=== PATIENT | female | born 1995 | race Caucasian/White ===

== ENCOUNTER 2017-06-08 20:20 | Inpatient (IN) | payer OTHER ==
[2017-06-08 21:25] LABS: ABSOLUTE EOSINOPHILS # (AUTO) 0.3 10^3/uL (0.0-0.6); ABSOLUTE LYMPHOCYTES (AUTO) 2.7 10^3/uL (0.5-4.7); ABSOLUTE MONOCYTES (AUTO) 1.3 10^3/uL (0.1-1.4); ABSOLUTE NEUT (AUTO) 8.6 10^3/uL (1.7-8.2); BASOPHILS % (AUTO) 0.4 % (0-2); EOSINOPHILS % (AUTO) 2.2 % (0-6); HEMATOCRIT 38.7 % (36.0-47.0); HEMOGLOBIN 12.5 g/dL (12.0-15.5); HGB HCT DIFFERENCE -1.2; LYMPHOCYTES % (AUTO) 20.5 % (13-45); MEAN CORPUSCULAR HEMOGLOBIN 28.9 pg (27.0-33.4); MEAN CORPUSCULAR HGB CONC 32.2 g/dL (32.0-36.0); MEAN CORPUSCULAR VOLUME 90 fl (80-97); MONOCYTES % (AUTO) 10.1 % (3-13); RED BLOOD COUNT 4.31 10^6/uL (3.72-5.28); RED CELL DISTRIBUTION WIDTH 14.6 % (11.5-14.0); SEGMENTED NEUTROPHILS % (AUTO) 66.8 % (42-78); WHITE BLOOD COUNT 12.9 10^3/uL (4.0-10.5)
[2017-06-08 21:26] LABS: APPEARANCE,URINE CLEAR; BILIRUBIN,URINE NEGATIVE (NEGATIVE); GLUCOSE, URINE NEGATIVE (NEGATIVE); KETONES,URINE TRACE mg/dL (NEGATIVE); LEUKOCYTE ESTERASE,URINE NEGATIVE (NEGATIVE); NITRITE,URINE NEGATIVE (NEGATIVE); PROTEIN,URINE NEGATIVE (NEGATIVE); URINE SPECIFIC GRAVITY 1.006; UROBILINOGEN,URINE NEGATIVE mg/dL (<2.0)
[2017-06-08 21:37] LABS: ALANINE AMINOTRANSFERASE 28 U/L (9-52); ALBUMIN 4.6 g/dL (3.5-5.0); ALKALINE PHOSPHATASE 94 U/L (38-126); ANION GAP 16 (5-19); ASPARTATE AMINO TRANSFERASE 31 U/L (14-36); BILIRUBIN,DIRECT 0.4 mg/dL (0.0-0.4); BILIRUBIN,TOTAL 0.7 mg/dL (0.2-1.3); BLOOD UREA NITROGEN 30 mg/dL (7-20); CALCIUM 9.9 mg/dL (8.4-10.2); CARBON DIOXIDE 23 mmol/L (22-30); CHLORIDE 101 mmol/L (98-107); CREATININE RESULT 3.92 mg/dL (0.52-1.25); GLUCOSE 86 mg/dL (75-110); LIPASE 155.5 U/L (23-300); POTASSIUM 4.9 mmol/L (3.6-5.0); SODIUM 140.3 mmol/L (137-145); TOTAL PROTEIN 7.9 g/dL (6.3-8.2)
[2017-06-08] MEDS ORDERED: KETOROLAC TROMETHAMINE INJ/PF 30 MG/1 ML SDV IV ONE (21:53)
[2017-06-08] MEDS ORDERED: ONDANSETRON HCL INJ/PF 4 MG/2 ML SDV IV ONE (21:53)
[2017-06-08] MEDS ORDERED: NORMAL SALINE 1000 ML 1,000 ML IV ONE ×3 (22:22→23:21)
--- NOTE | 2017-06-08 22:56 | ER Document Report ---
ED GI/ - General Chief Complaint: Abdominal Pain Stated Complaint: STOMACH/BACK PAIN Time Seen by Provider: 06/08/17 22:11 Mode of Arrival: Ambulatory Information source: Patient Notes: Patient presents complaining of nausea and abdominal cramps that started yesterday. Patient denies any vomiting or diarrhea. Patient denies any fever. Patient states that she was recently placed on Cipro to treat a dental infection although stopped it yesterday when her symptoms started. Patient states that she had been taking Cipro 750 mg twice a day for 4 days. Patient states she was given pain medication in triage and now her pain has resolved. TRAVEL OUTSIDE OF THE [place] IN LAST 30 DAYS: No - HPI Patient complains to provider of: Abdominal pain. No: Diarrhea, Dysuria, Vaginal bleeding, Vaginal discharge, Vomiting Onset: Yesterday Timing/Duration: Gradual Quality of pain: Achy Severity at maximum: Moderate Pain Level: Denies Location: Low back, Other - Generalized abdomen Vaginal bleeding (Compared to normal period): None Associated symptoms: Nausea. denies: Diarrhea, Dysuria, Fever, Loss of appetite , Urinary hesitancy, Urinary frequency, Urinary retention, Urinary urgency, Vaginal discharge Exacerbated by: Denies Relieved by: Denies Similar symptoms previously: No Recently seen / treated by doctor: No - Related Data Allergies/Adverse Reactions: amoxicillin Allergy (Verified 06/08/17 20:55) clindamycin Allergy (Verified 06/08/17 20:55) Penicillins Allergy (Verified 06/08/17 20:55) Past Medical History - General Information source: Patient - Social History Smoking Status: Former Smoker Chew tobacco use (# tins/day): No Frequency of alcohol use: Social Drug Abuse: None 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 denies: Fever, Recent illness EENT: No symptoms reported Cardiovascular: No symptoms reported. denies: Chest pain Respiratory: No symptoms reported. denies: Cough, Short of breath Gastrointestinal: Abdominal pain, Nausea. denies: Diarrhea, Vomiting Genitourinary: Flank pain. denies: Dysuria Female Genitourinary: No symptoms reported Musculoskeletal: Back pain Skin: No symptoms reported Hematologic/Lymphatic: No symptoms reported Neurological/Psychological: No symptoms reported Physical Exam - Vital signs Vitals: Temp Pulse Resp BP Pulse Ox 98.7 F 75 16 129/82 H 100 06/08/17 20:56 06/08/17 20:56 06/08/17 20:56 06/08/17 20:56 06/08/17 20:56 - General General appearance: Appears well, Alert In distress: None - HEENT Head: Normocephalic, Atraumatic Eyes: Normal Conjunctiva: Normal Nasal: Normal Mouth/Lips: Normal Mucous membranes: Normal Neck: Normal, Supple. No: Lymphadenopathy - Respiratory Respiratory status: No respiratory distress Chest status: Nontender Breath sounds: Normal. No: Rales, Rhonchi, Stridor, Wheezing Chest palpation: Normal - Cardiovascular Rhythm: Regular Heart sounds: S1 appreciated, S2 appreciated Murmur: No - Abdominal Inspection: Obese Distension: No distension Bowel sounds: Normal Tenderness: Nontender Organomegaly: No organomegaly - Back Back: Normal, Nontender. No: CVA tenderness - Extremities General upper extremity: Normal inspection, Normal ROM General lower extremity: Normal inspection, Normal ROM - Neurological Neuro grossly intact: Yes Cognition: Normal Frank Coma Scale Eye Opening: Spontaneous [place] Coma Scale Verbal: Oriented Frank Coma Scale Motor: Obeys Commands Frank Coma Scale Total: 15 - Psychological Associated symptoms: Normal affect, Normal mood - Skin Skin Temperature: Warm Skin Moisture: Dry Skin Color: Normal Course - Re-evaluation Re-evalutation: 06/08/17 23:[address] Wakefield regarding patient presentation and diagnostic test results. Recommends giving patient 3 L of IV fluids and then repeating her chemistry panel. 06/09/17 00:07 IVF infusing, BS CTA, pt denies complaints at this time. 06/09/17 00:53 Patient states that her abdominal pain and back pain have returned but are off and on at this time. Patient requesting additional medicine. 06/09/17 02:00\ call placed to dr Puentes, he will return call when available 06/09/17 04:[address] Puentes, he will return call when available 06/09/17 05:[address] Puentes regarding patient presentation, agrees to accept patient for admission to [facility] - Vital Signs Vital signs: Temp Pulse Resp BP Pulse Ox 98.0 F 73 16 134/73 H 98 06/09/17 00:44 06/09/17 03:35 06/09/17 03:35 06/09/17 03:35 06/09/17 03:35 - Laboratory Result Diagrams: 06/08/17 20:35 06/09/17 01:20 Laboratory results interpreted by me: 06/08/17 06/08/17 06/08/17 20:35 20:35 20:35 WBC 12.9 H RDW 14.6 H Absolute Neutrophils 8.6 H Chloride BUN 30 H Creatinine 3.92 H Est GFR ( Amer) 18 L Est GFR (Non-Af Amer) 14 L Urine Ketones TRACE H Urine Blood SMALL H 06/09/17 01:20 WBC RDW Absolute Neutrophils Chloride 108 H BUN 26 H Creatinine 3.34 H Est GFR ( Amer) 21 L Est GFR (Non-Af Amer) 17 L Urine Ketones Urine Blood - Diagnostic Test Radiology reviewed: Reports reviewed Discharge - Discharge Clinical Impression: EMILY (acute kidney injury) Condition: Stable Disposition: ADMITTED INPATIENT Admitting Provider: Hospitalist Unit Admitted: [facility]
--- NOTE | 2017-06-08 23:02 | RADIOLOGY REPORT (SQ) ---
EXAM DESCRIPTION: CT LTD RENAL STONE PROTOCOL ON COMPLETED DATE/TIME: 06/08/2017 10:34 pm REASON FOR STUDY: bilat flank pain, EMILY COMPARISON: None. TECHNIQUE: CT scan of the abdomen and pelvis performed without intravenous or oral contrast. Images reviewed with lung, soft tissue, and bone windows. Reconstructed coronal and sagittal MPR images revi ewed. All images stored on PACS. All CT scanners at this facility use dose modulation, iterative reconstruction, and/or weight based d osing when appropriate to reduce radiation dose to as low as reasonably achievable (ALARA). [facility]: Dose Right [facility]: CareDose [facility]: Dose Right [facility]: Teradose 4D [facility]: Smart Skypaz RADIATION DOSE: Up-to-date CT equipment and radiation dose reduction techniques were employed. CTDIv ol: 13.8 mGy. DLP: 700 mGy-cm.mGy. LIMITATIONS: None. FINDINGS: LOWER CHEST: No significant findings. No nodules or infiltrates. NON-CONTRASTED LIVER, SPLEEN, ADRENALS: Evaluation limited by lack of IV contrast. No identified sign ificant masses. PANCREAS: No masses. No peripancreatic inflammatory changes. GALLBLADDER: No identified stones by CT criteria. No inflammatory changes to suggest cholecystitis. RIGHT KIDNEY AND URETER: No suspicious masses. Assessment limited by lack of IV contrast. No signif icant calcifications. No hydronephrosis or hydroureter. LEFT KIDNEY AND URETER: No suspicious masses. Assessment limited by lack of IV contrast. No signifi cant calcifications. No hydronephrosis or hydroureter. AORTA AND RETROPERITONEUM: No aneurysm. No retroperitoneal masses or adenopathy. BOWEL AND PERITONEAL CAVITY: No obvious masses or inflammatory changes. No free fluid. APPENDIX: Normal. PELVIS, BLADDER, AND ABDOMINAL WALL:Age-appropriate appearance of the uterus and ovaries. Trace cul- de-sac free fluid. Bladder normal. BONES: No significant findings. OTHER: No other significant finding. IMPRESSION: NO SIGNIFICANT OR ACUTE PROCESS IN THE ABDOMEN OR PELVIS. COMMENT: Quality ID # [id number]: Final reports with documentation of one or more dose reduction techniques (e.g., Automated exposure control, adjustment of the mA and/or kV according to patient size, use of iterative reconstruction technique) TECHNICAL DOCUMENTATION: JOB ID: [id number] [employer]- All Rights Reserved
[2017-06-09] MEDS ORDERED: MORPHINE SULFATE 10 MG/ML INJ IV ONE ×2 (00:52→04:23)
[2017-06-09 01:48] LABS: ANION GAP 11 (5-19); BLOOD UREA NITROGEN 26 mg/dL (7-20); CALCIUM 9.3 mg/dL (8.4-10.2); CARBON DIOXIDE 24 mmol/L (22-30); CHLORIDE 108 mmol/L (98-107); CREATININE RESULT 3.34 mg/dL (0.52-1.25); GLUCOSE 96 mg/dL (75-110); POTASSIUM 4.1 mmol/L (3.6-5.0); SODIUM 143.1 mmol/L (137-145)
[2017-06-09] MEDS ORDERED: NORMAL SALINE 1000 ML 1,000 ML IV PRN (03:00)
[2017-06-09] MEDS ORDERED: IPRATROPIUM/ALBUTEROL 0.5-2.5 MG/3 ML AMPUL NEB PRN (07:03)
[2017-06-09] MEDS ORDERED: 1/2 NORMAL SALINE 1,000 ML IV PRN (07:03)
--- NOTE | 2017-06-09 07:34 | PDOC H&P ---
History of Present Illness Admission Date/PCP: 06/09/17 05:49 PCP None Patient complains of: nausea, abd cramps History of Present Illness: MATHEW COURTNEY is a 21 year old female with underlying eczema, reflux , right knee pain, history of peptic ulcer disease, mild anxiety depression, without suicidal or homicidal ideation, but no known urinary tract problems who presents to the emergency room for evaluation of approximately 24 hour history of nausea and primarily upper abdominal cramping. Nothing in particular made the pain worse. Given pain medication in triage, with resolution of the pain. No vomiting, fever chills, or diarrhea. Started on Cipro to treat a dental infection. Stop this medication yesterday when her symptoms started. Took this twice a day. No darkening of her urine. No dysuria. No prior urinary tract infections. Patient has been discussed with emergency room nurse practitioner who evaluated the patient. Dictation via voice recognition software. Laboratory results are listed in [employer] and are reviewed. X-ray summary results are listed below, with full report(s) reviewed. . Social history/personal habits: Single. No children. 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 No tobacco or illicit drug use. 4-5 beers per weekend when out with friends. Allergies/adverse reactions are listed in [employer] and are reviewed. Home medications none REVIEW OF SYSTEMS: Constitutional: No fever or chills. Eyes: No vision complaints. ENT: No swallowing problems or complaints. Denies hearing loss. Pulmonary: No current complaints. Cardiovascular: No current complaints, including chest pain. Gastrointestinal: See history and present illness. Skin: No current complaints, including rashes. Hematologic: Easy bruising. Neurologic: No current complaints, including numbness or tingling. Musculoskeletal: Intermittent right knee pain, without diagnosis of arthritis. Psychiatric: Mild anxiety and depression. Denies suicidal or homicidal ideation. Endocrine: No current complaints, including polyuria. Genitourinary: No current complaints, including dysuria. PHYSICAL EXAMINATION: 5 feet 1 inches tall. 88 kg. BMI 36.7 kg/m. Temperature 98.0. Pulse 74 and regular. Blood pressure 132/94. Respirations are 15 and unlabored. 100% saturation on room air. Obese otherwise well-developed young female who appears approximately her stated age. Pleasant awake alert and cooperative. No obvious distress other than somewhat anxious. Mother is listening in on cell phone; patient aware. Female emergency room nurse Nicole is present. Skin is warm and dry. No grossly obvious evidence of rash in areas of skin examined. No subcutaneous nodules palpated. ENT: Hearing grossly normal to normal conversation. Tongue midline on protrusion pink and moist. Eyes: No scleral icterus. Pupils equal and reactive to light at 4 mm. [place] conjunctivae. Neck is supple and nontender to gentle active range of motion and palpation. Midline trachea. No palpable thyroid nodule mass enlargement or tenderness. Lymphatic: No palpable cervical or clavicular nodes. Neck and lymphatic exams limited by patient body habitus. Psychiatric: Reasonable insight into acute and chronic medical issues. Oriented to time location and why here. Lungs: Auscultation reveals clear and equal breath sounds bilaterally. No use of accessory respiratory muscles. Cardiovascular: Heart regular rate and rhythm, without gallop murmur or rub. No carotid or abdominal aortic bruits. No ankle or pedal edema. Faintly palpable dorsalis pedis pulses. Abdomen:soft obese basically nontender other than scant upper abdominal discomfort to palpation, with positive bowel sounds. Unable to adequately evaluate abdomen for masses or organomegaly due to body habitus. Extremities: Feet are warm and dry. No calf tenderness to compression. No grossly obvious visual evidence of calf swelling. Gentle manipulation of lower extremities fails to reveal any obvious evidence of injury or instability to knees hips or ankles. Neurologic: Moves upper extremities grossly normally. Patellar reflexes absent. Absent Babinski. Light touch is intact at feet. Dorsiflexion and plantarflexion of feet 5 / 5 and symmetric. Past Medical History Cardiac Medical History: Denies: Atrial Fibrillation, Congestive Heart Failure, Coronary Artery Disease, DVT, Myocardial Infarction, Hyperlipidema, Hypertension, Pulmonary Embolism Pulmonary Medical History: Reports: Asthma - Has not bothered her for years Denies: Chronic Obstructive Pulmonary Disease (COPD), Sleep Apnea EENT Medical History: Denies: Eyes, Ears, Throat Neurological Medical History: Reports: Migraine - Occasional Denies: Hemorrhagic CVA, Ischemic CVA, Seizures Endocrine Medical History: Denies: Diabetes Mellitus Type 1, Diabetes Mellitus Type 2, Hyperthyroidism, Hypothyroidism Renal/ Medical History: Reports: None GI Medical History: Reports: Gastroesophageal Reflux Disease Denies: Cirrhosis, Hepatitis, Peptic Ulcer Disease Musculoskeltal Medical History: Reports: Other - Intermittent right knee pain Skin Medical History: Reports: Eczema Psychiatric Medical History: Reports: Depression, General Anxiety Disorder Denies: Alcohol Dependency, Substance Abuse, Tobacco Dependency Hematology: Reports: Other - Easy bruising Infectious Medical History: Denies: Hepatitis B, Hepatitis C Past Surgical History Past Surgical History: Reports: Tonsillectomy, Other - Nasal surgery Social History Information Source: Patient, Relative - Mother listening in on cell phone, Emergency Med Personnel, [facility] Records Smoking Status: Unknown if Ever Smoked Frequency of Alcohol Use: Social Drugs: None - Advance Directive Resuscitation Status: Full Code Surrogate healthcare decision maker:: Mother Family History Family History: Reviewed & Not Pertinent Parental Family History Reviewed: Yes - Mother healthy; uncertain health status of father Children Family History Reviewed: NA Sibling(s) Family History Reviewed.: Yes - Healthy Medication/Allergy Allergies/Adverse Reactions: amoxicillin Allergy (Verified 06/08/17 20:55) clindamycin Allergy (Verified 06/08/17 20:55) Penicillins Allergy (Verified 06/08/17 20:55) shellfish derived Allergy (Verified 06/09/17 07:11) Physical Exam Vital Signs: Temp Pulse Resp BP Pulse Ox 98.0 F 73 18 123/72 97 06/09/17 00:44 06/09/17 03:35 06/09/17 07:01 06/09/17 07:01 06/09/17 07:01 Results Impressions: Limited or Localized CT 06/08/17 22:22 IMPRESSION: NO SIGNIFICANT OR ACUTE PROCESS IN THE ABDOMEN OR PELVIS. Assessment & Plan - Diagnosis (1) ARF (acute renal failure) Qualifiers: Acute renal failure type: unspecified Qualified Code(s): N17.9 - Acute kidney failure, unspecified Is this a current diagnosis for this admission?: Yes Plan: Likely an adverse effect of Cipro. Continue IV fluid. Serial chemistry. Nephrology consult. I have strongly encouraged patient to be careful getting out of bed, to avoid a fall with injury. Knee high SCDs for DVT prophylaxis, along with subcutaneous heparin. Impression and plans were discussed with patient and mother, both of whom concur. Time spent in evaluation and management of patient: 67 minutes. (2) Abdominal pain Qualifiers: Abdominal location: upper abdomen, unspecified Qualified Code(s): R10.10 - Upper abdominal pain, unspecified Is this a current diagnosis for this admission?: Yes Plan: As needed pain medication (3) DVT prophylaxis Is this a current diagnosis for this admission?: Yes (4) Nausea Is this a current diagnosis for this admission?: Yes Plan: As needed Phenergan - Time Time Spent: 50 to 70 Minutes Medications reviewed and adjusted accordingly: Yes Anticipated discharge: Home Within: within 72 hours - Inpatient Certification Based on my medical assessment, after consideration of the patient's comorbidities, presenting symptoms, or acuity I expect that the services needed warrant INPATIENT care.: Yes I certify that my determination is in accordance with my understanding of Medicare's requirements for reasonable and necessary INPATIENT services [42 CFR 412.3e].: Yes Medical Necessity: Need Close Monitoring Due to Risk of Patient Decompensation, Need For IV Fluids, Risk of Complication if Not Cared For in Hospital, Risk of Diagnosis Which Will Require Inpatient Eval/Care/Monitoring Post Hospital Care: D/C or Transfer Summary
[2017-06-09 07:51] LABS: ABSOLUTE BASOPHILS # (AUTO) 0.1 10^3/uL (0.0-0.2); ABSOLUTE EOSINOPHILS # (AUTO) 0.3 10^3/uL (0.0-0.6); ABSOLUTE LYMPHOCYTES (AUTO) 3.1 10^3/uL (0.5-4.7); ABSOLUTE MONOCYTES (AUTO) 1.2 10^3/uL (0.1-1.4); ABSOLUTE NEUT (AUTO) 5.9 10^3/uL (1.7-8.2); BASOPHILS % (AUTO) 0.5 % (0-2); EOSINOPHILS % (AUTO) 2.6 % (0-6); HEMATOCRIT 35.3 % (36.0-47.0); HEMOGLOBIN 11.6 g/dL (12.0-15.5); HGB HCT DIFFERENCE -0.5; LYMPHOCYTES % (AUTO) 29.2 % (13-45); MEAN CORPUSCULAR HEMOGLOBIN 29.4 pg (27.0-33.4); MEAN CORPUSCULAR HGB CONC 32.7 g/dL (32.0-36.0); MEAN CORPUSCULAR VOLUME 90 fl (80-97); MONOCYTES % (AUTO) 11.1 % (3-13); RED BLOOD COUNT 3.94 10^6/uL (3.72-5.28); RED CELL DISTRIBUTION WIDTH 14.1 % (11.5-14.0); SEGMENTED NEUTROPHILS % (AUTO) 56.6 % (42-78); WHITE BLOOD COUNT 10.5 10^3/uL (4.0-10.5)
[2017-06-09 08:00] LABS: ANION GAP 9 (5-19); BLOOD UREA NITROGEN 25 mg/dL (7-20); CALCIUM 9.1 mg/dL (8.4-10.2); CARBON DIOXIDE 24 mmol/L (22-30); CHLORIDE 108 mmol/L (98-107); CREATININE RESULT 3.18 mg/dL (0.52-1.25); GLUCOSE 85 mg/dL (75-110); MAGNESIUM 2.1 mg/dL (1.6-2.3); PHOSPHORUS 5.6 mg/dL (2.5-4.5); POTASSIUM 4.4 mmol/L (3.6-5.0); SODIUM 140.5 mmol/L (137-145)
[2017-06-09] MEDS: DOCUSATE SODIUM 100 MG CAPSULE PO SCH ×2 (10:45→17:43)
[2017-06-09] MEDS: HEPARIN SOD (PORCINE) 5,000 UNIT/ML 1 ML SYRINGE SUBCUT SCH ×2 (10:46→22:18)
--- NOTE | 2017-06-09 14:50 | PDOC CONSULTATION ---
Consultation Consult Date: 06/09/17 Consult reason:: EMILY History of Present Illness Admission Date/PCP: 06/09/17 07:03 History of Present Illness: MATHEW COURTNEY is a 21 year old female with underlying eczema, reflux , right knee pain, history of peptic ulcer disease, mild anxiety depression, without suicidal or homicidal ideation, but no known urinary tract problems who presents to the emergency room for evaluation of approximately 24 hour history of nausea and primarily upper abdominal cramping. Pain was found to be mostly in her lower abdomen. She also had it radiating to her lower back. Prior to this event she was started on the antibiotic cipro for prophylaxis of a dental procedure. When she came to the ER she was found to have a creatinine of 3.9. She was given NS at a rate of 175mL an hour. She also had an abdominal CT with stone protocol done, which showed no stones or abnormalities. This morning her creatinine is down to 3.2. She denies any change in the way the urine looks, she did have a minor decrease in production. The urine production since then has resumed back to normal. No history of kidney related disease like lupus, FSGS, nephritis or nephrotic syndrome. No family history of PKD. Past Medical History Cardiac Medical History: Denies: Atrial Fibrillation, Coronary Artery Disease, DVT, Hyperlipidemia, Myocardial Infarction, Pulmonary Embolism Pulmonary Medical History: Reports: Asthma - Has not bothered her for years Denies: Chronic Obstructive Pulmonary Disease (COPD), Sleep Apnea EENT Medical History: Reports: Other - Easy bruising Denies: Eyes, Ears, Throat Neurological Medical History: Reports: Migraine - Occasional Denies: Hemorrhagic CVA, Ischemic CVA, Seizures Endocrine Medical History: Denies: Diabetes Mellitus Type 1, Diabetes Mellitus Type 2, Hyperthyroidism, Hypothyroidism Renal/ Medical History: Reports: None GI Medical History: Reports: Gastroesophageal Reflux Disease Denies: Cirrhosis, Hepatitis, Peptic Ulcer Disease Musculoskeltal Medical History: Reports: Other - Intermittent right knee pain Skin Medical History: Reports: Eczema Psychiatric Medical History: Reports: Depression, General Anxiety Disorder Denies: Alcohol Dependency, Substance Abuse, Tobacco Dependency Infectious Medical History: Denies: Hepatitis B, Hepatitis C Past Surgical History Past Surgical History: Reports: Tonsillectomy, Other - Nasal surgery Social History Smoking Status: Never Smoker Frequency of Alcohol Use: Social Hx Recreational Drug Use: No Drugs: None Hx Prescription Drug Abuse: No - Advance Directive Resuscitation Status: Full Code Family History Parental Family History Reviewed: No Children Family History Reviewed: No Sibling(s) Family History Reviewed.: No Medication/Allergy Home Medications: No Home Medications 06/09/17 Allergies/Adverse Reactions: Iodinated Contrast- Oral and IV Dye Allergy (Severe, Verified 06/09/17 09:43) Anaphylaxis peanut Allergy (Severe, Verified 06/09/17 09:43) Anaphylaxis Penicillins Allergy (Severe, Verified 06/09/17 09:43) Anaphylaxis shellfish derived Allergy (Severe, Verified 06/09/17 09:43) Anaphylaxis strawberry Allergy (Severe, Verified 06/09/17 09:43) Anaphylaxis amoxicillin Allergy (Intermediate, Verified 06/09/17 09:43) Vomiting cefaclor [From Ceclor] Allergy (Verified 06/09/17 07:26) clindamycin Allergy (Verified 06/09/17 09:43) erythromycin base Allergy (Verified 06/09/17 07:26) ketchup Allergy (Severe, Uncoded 06/09/17 09:43) Anaphylaxis Review of Systems Eyes: ABSENT: visual disturbances Ears: ABSENT: hearing changes Nose, Mouth, and Throat: ABSENT: headache(s), sore throat Cardiovascular: ABSENT: chest pain, dyspnea on exertion, edema, orthropnea, palpitations Respiratory: ABSENT: cough, dyspnea, sputum Gastrointestinal: ABSENT: abdominal pain, constipation, diarrhea, hematemesis, hematochezia, nausea, vomiting Genitourinary: ABSENT: difficulty urinating, dysuria, hematuria Musculoskeletal: ABSENT: deformity, joint swelling, muscle weakness Integumentary: ABSENT: rash, wounds Neurological: ABSENT: abnormal gait, abnormal speech, confusion, dizziness, focal weakness, syncope Psychiatric: PRESENT: anxiety, depression Endocrine: ABSENT: polydipsia, polyuria Physical Exam Vital Signs: Temp Pulse Resp BP Pulse Ox 98.8 F 64 14 131/70 H 100 06/09/17 09:17 06/09/17 11:26 06/09/17 11:26 06/09/17 09:06/09/17 11:26 Intake & Output 06/08/17 06/09/17 06/10/17 06:59 06:59 06:59 Weight 92.164 kg General appearance: PRESENT: no acute distress, well-developed, well-nourished Head exam: PRESENT: atraumatic, normocephalic Mouth exam: PRESENT: moist, tongue midline Neck exam: PRESENT: full ROM. ABSENT: JVD Respiratory exam: PRESENT: clear to auscultation alberto. ABSENT: accessory muscle use, chest wall tenderness Cardiovascular exam: PRESENT: RRR, +S1, +S2 GI/Abdominal exam: PRESENT: normal bowel sounds, soft. ABSENT: distended, guarding, organomegaly, rebound, tenderness Extremities exam: ABSENT: joint swelling, pedal edema, tenderness Musculoskeletal exam: PRESENT: normal inspection. ABSENT: deformity, tenderness Neurological exam: PRESENT: alert, awake, oriented to person, oriented to place , oriented to time, oriented to situation Psychiatric exam: PRESENT: appropriate affect, normal mood Skin exam: PRESENT: dry, intact, warm. ABSENT: cyanosis, rash Results Laboratory Results: 06/09/17 07:25 06/09/17 07:25 06/09/17 06/09/17 07:25 07:25 WBC 10.5 RBC 3.94 Hgb 11.6 L Hct 35.3 L MCV 90 MCH 29.4 MCHC 32.7 RDW 14.1 H Plt Count 235 Seg Neutrophils % 56.6 Lymphocytes % 29.2 Monocytes % 11.1 Eosinophils % 2.6 Basophils % 0.5 Absolute Neutrophils 5.9 Absolute Lymphocytes 3.1 Absolute Monocytes 1.2 Absolute Eosinophils 0.3 Absolute Basophils 0.1 Sodium 140.5 Potassium 4.4 Chloride 108 H Carbon Dioxide 24 Anion Gap 9 BUN 25 H Creatinine 3.18 H Est GFR ( Amer) 22 L Est GFR (Non-Af Amer) 18 L Glucose 85 Calcium 9.1 Phosphorus 5.6 H Magnesium 2.1 Impressions: Limited or Localized CT 06/08/17 22:22 IMPRESSION: NO SIGNIFICANT OR ACUTE PROCESS IN THE ABDOMEN OR PELVIS. Assessment & Plan - Diagnosis (1) Anemia Plan: Will follow up with anemia lab work up if it is going down. Most likely dilutional with how much NS that she is receiving (2) ARF (acute renal failure) Qualifiers: Acute renal failure type: unspecified Qualified Code(s): N17.9 - Acute kidney failure, unspecified Is this a current diagnosis for this admission?: Yes Plan: Looks to be improving. Most likely from the use of cipro. Most likely not due to a kidney stone. No stone was found on CT. Also does not look to be post obstructive. Unlikely to be from dehydration due to how hydrated she stays. UA shows no protein so less likely from nephritis or nephrotic syndrome. Continue on NS at current rate. Patient is producing good urine out put. (3) Abdominal pain Qualifiers: Abdominal location: upper abdomen, unspecified Qualified Code(s): R10.10 - Upper abdominal pain, unspecified Is this a current diagnosis for this admission?: Yes Plan: Controlled by pain meds. (4) Nausea Is this a current diagnosis for this admission?: Yes Plan: Resolved
[2017-06-09] MEDS: ACETAMINOPHEN 325 MG TABLET PO PRN (14:59)
[2017-06-09] MEDS: PROMETHAZINE HCL 25 MG TABLET PO PRN (15:01)
--- NOTE | 2017-06-09 15:09 | PDOC PROGRESS REPORT ---
Subjective Progress Note for:: 06/09/17 Subjective:: The patient is resting in her bed with her sister at the bedside. She states that she is feeling a little bit better and was able to eat some lunch this afternoon. She has been seen by nephrology who wants to continue increased IV fluids and is recommended a renal ultrasound. Overall she states that her nausea has improved. No vomiting. She does not feel as weak and dizzy as she did when she came into the hospital. The pain that she was having is improving. No chest pain, shortness of breath or heart palpitations. She has not had a bowel movement today. She is making good urine and has no dysuria, frequency or hematuria. Physical Exam Vital Signs: Temp Pulse Resp BP Pulse Ox 97.7 F 71 12 128/68 H 100 06/09/17 11:48 06/09/17 14:00 06/09/17 11:48 06/09/17 11:48 06/09/17 11:48 Intake & Output 06/08/17 06/09/17 06/10/17 06:59 06:59 06:59 Intake Total 240 Balance 240 Weight 92.164 kg General appearance: PRESENT: no acute distress, well-developed, well-nourished Head exam: PRESENT: atraumatic, normocephalic Mouth exam: PRESENT: moist, tongue midline Respiratory exam: PRESENT: clear to auscultation alberto. ABSENT: rales, rhonchi, wheezes Cardiovascular exam: PRESENT: RRR. ABSENT: diastolic murmur, rubs, systolic murmur GI/Abdominal exam: PRESENT: normal bowel sounds, soft. ABSENT: distended, guarding, mass, organolmegaly, rebound, tenderness Rectal exam: PRESENT: deferred Extremities exam: PRESENT: full ROM. ABSENT: calf tenderness, clubbing, pedal edema Musculoskeletal exam: PRESENT: ambulatory Neurological exam: PRESENT: alert, awake, oriented to person, oriented to place , oriented to time, oriented to situation, CN II-XII grossly intact. ABSENT: motor sensory deficit Psychiatric exam: PRESENT: appropriate affect, normal mood. ABSENT: homicidal ideation, suicidal ideation Skin exam: PRESENT: dry, intact, warm. ABSENT: cyanosis, rash Results Laboratory Results: 06/09/17 07:25 06/09/17 07:25 06/09/17 06/09/17 07:25 07:25 WBC 10.5 RBC 3.94 Hgb 11.6 L Hct 35.3 L MCV 90 MCH 29.4 MCHC 32.7 RDW 14.1 H Plt Count 235 Seg Neutrophils % 56.6 Lymphocytes % 29.2 Monocytes % 11.1 Eosinophils % 2.6 Basophils % 0.5 Absolute Neutrophils 5.9 Absolute Lymphocytes 3.1 Absolute Monocytes 1.2 Absolute Eosinophils 0.3 Absolute Basophils 0.1 Sodium 140.5 Potassium 4.4 Chloride 108 H Carbon Dioxide 24 Anion Gap 9 BUN 25 H Creatinine 3.18 H Est GFR ( Amer) 22 L Est GFR (Non-Af Amer) 18 L Glucose 85 Calcium 9.1 Phosphorus 5.6 H Magnesium 2.1 Impressions: Limited or Localized CT 06/08/17 22:22 IMPRESSION: NO SIGNIFICANT OR ACUTE PROCESS IN THE ABDOMEN OR PELVIS. Assessment & Plan - Diagnosis (1) ARF (acute renal failure) Qualifiers: Acute renal failure type: unspecified Qualified Code(s): N17.9 - Acute kidney failure, unspecified Is this a current diagnosis for this admission?: Yes Plan: Likely secondary to acute tubular necrosis possibly due to treatment with Cipro and Motrin. I have increased her IV fluids 175 cc an hour. She will have a renal ultrasound performed. We will check a chemistry panel in the morning. Nephrology has seen the patient and we certainly appreciate their input. (2) Abdominal pain Qualifiers: Abdominal location: upper abdomen, unspecified Qualified Code(s): R10.10 - Upper abdominal pain, unspecified Is this a current diagnosis for this admission?: Yes Plan: Secondary to acute renal failure. Improving (3) Anemia Plan: Likely secondary to hemodilution. She will have a CBC drawn in the morning. (4) Nausea Is this a current diagnosis for this admission?: Yes Plan: Secondary to acute renal failure. Improving. She does have antiemetics available as needed. - Time Time Spent with patient: 15-24 minutes - Inpatient Certification Medical Necessity: Need For IV Fluids - Inpatient hospitalization remains necessary. This young lady has acute renal failure requiring aggressive IV fluid hydration. Timing of disposition will be determined by her clinical course and when nephrology feels this if it is safe for her to go home.
[2017-06-09] MEDS: HYDROCODONE/ACETAMINOPHEN 5-325 MG TABLET PO PRN (18:55)
--- NOTE | 2017-06-09 21:13 | RADIOLOGY REPORT (SQ) ---
EXAM DESCRIPTION: U/S RETROPERITON (RENAL/AORTA) COMPLETED DATE/TIME: 06/09/2017 9:05 pm REASON FOR STUDY: acute renal failure COMPARISON: CT dated 06/08/2017 TECHNIQUE: Dynamic and static grayscale images acquired of the kidneys and bladder and recorded on P ACS. Additional selected color Doppler and spectral images recorded. LIMITATIONS: Body habitus. FINDINGS: RIGHT KIDNEY: Normal size. Normal echogenicity. No solid or suspicious masses. No hydronep hrosis. No calcifications. LEFT KIDNEY: Normal size. Normal echogenicity. No solid or suspicious masses. No hydronephrosis. No calcifications. BLADDER: No masses. OTHER FINDINGS: No other significant finding. IMPRESSION: NORMAL RENAL AND BLADDER ULTRASOUND. TECHNICAL DOCUMENTATION: JOB ID: [id number] [employer]- All Rights Reserved
[2017-06-10] MEDS: NORMAL SALINE 1000 ML 1,000 ML IV PRN ×3 (00:16→18:33)
[2017-06-10] MEDS: HYDROCODONE/ACETAMINOPHEN 5-325 MG TABLET PO PRN ×2 (04:28→17:12)
[2017-06-10 08:34] LABS: ABSOLUTE BASOPHILS # (AUTO) 0.1 10^3/uL (0.0-0.2); ABSOLUTE EOSINOPHILS # (AUTO) 0.3 10^3/uL (0.0-0.6); ABSOLUTE MONOCYTES (AUTO) 0.9 10^3/uL (0.1-1.4); ABSOLUTE NEUT (AUTO) 4.9 10^3/uL (1.7-8.2); BASOPHILS % (AUTO) 0.6 % (0-2); EOSINOPHILS % (AUTO) 3.6 % (0-6); HEMATOCRIT 34.8 % (36.0-47.0); HEMOGLOBIN 11.7 g/dL (12.0-15.5); HGB HCT DIFFERENCE 0.3; LYMPHOCYTES % (AUTO) 24.4 % (13-45); MEAN CORPUSCULAR HEMOGLOBIN 29.8 pg (27.0-33.4); MEAN CORPUSCULAR HGB CONC 33.6 g/dL (32.0-36.0); MEAN CORPUSCULAR VOLUME 89 fl (80-97); MONOCYTES % (AUTO) 11.2 % (3-13); RED BLOOD COUNT 3.92 10^6/uL (3.72-5.28); RED CELL DISTRIBUTION WIDTH 14.2 % (11.5-14.0); SEGMENTED NEUTROPHILS % (AUTO) 60.2 % (42-78); WHITE BLOOD COUNT 8.1 10^3/uL (4.0-10.5)
[2017-06-10 08:54] LABS: ANION GAP 9 (5-19); BLOOD UREA NITROGEN 19 mg/dL (7-20); CARBON DIOXIDE 25 mmol/L (22-30); CHLORIDE 107 mmol/L (98-107); CREATININE RESULT 2.59 mg/dL (0.52-1.25); GLUCOSE 83 mg/dL (75-110); MAGNESIUM 1.9 mg/dL (1.6-2.3); PHOSPHORUS 5.1 mg/dL (2.5-4.5); POTASSIUM 5.3 mmol/L (3.6-5.0); SODIUM 141.1 mmol/L (137-145)
[2017-06-10] MEDS: DOCUSATE SODIUM 100 MG CAPSULE PO SCH ×2 (09:45→18:16)
[2017-06-10] MEDS: HEPARIN SOD (PORCINE) 5,000 UNIT/ML 1 ML SYRINGE SUBCUT SCH ×2 (09:45→21:50)
--- NOTE | 2017-06-10 11:49 | PDOC PROGRESS REPORT ---
Subjective Progress Note for:: 06/10/17 Subjective:: The patient is a pleasant 21 female with a past medical history significant for eczema, gastroesophageal reflux disease and history of peptic ulcer disease. She also suffers from mild anxiety and depression. She works at [employer]. She presented to the emergency room with a 24 hour here history of nausea and abdominal cramping. The pain radiated into her back. She had recently been treated with p.o. Cipro for a dental procedure and was given Motrin to take for pain. In the emergency room she was found to have creatinine of 3.9. She had a CT scan of the abdomen and pelvis with stone protocol performed which revealed no evidence of kidney stone or any abnormalities. She was referred for admission. She was started on aggressive IV fluids and all nephrotoxic medications have been held. She was seen yesterday by nephrology who is following along here in the hospital. Today her creatinine is down to 2.59. She had a renal ultrasound performed yesterday which was unremarkable as well. Today when I saw the patient since she is resting comfortably in the bed. She states that she has had no fever or chills overnight. No chest pain, shortness of breath or heart palpitations. She has had no further episodes of nausea. No vomiting. She continues to have back pain in the area of the right kidney. This is requiring hydrocodone for control. She has no abdominal pain. No dysuria or hematuria. She does complain of urinary frequency due to aggressive IV fluids. Physical Exam Vital Signs: Temp Pulse Resp BP Pulse Ox 97.7 F 67 12 126/76 H 98 06/10/17 07:55 06/10/17 07:55 06/10/17 07:55 06/10/17 07:55 06/10/17 07:55 Intake & Output 06/09/17 06/10/17 06/11/17 06:59 06:59 06:59 Intake Total 4065 Output Total 2100 Balance 1965 Weight 92.164 kg General appearance: PRESENT: no acute distress, cooperative, well-developed, well-nourished Head exam: PRESENT: atraumatic, normocephalic Mouth exam: PRESENT: moist, tongue midline Respiratory exam: PRESENT: clear to auscultation alberto. ABSENT: rales, rhonchi, wheezes Cardiovascular exam: PRESENT: RRR. ABSENT: diastolic murmur, rubs, systolic murmur GI/Abdominal exam: PRESENT: normal bowel sounds, soft, other - She does have right flank pain CVA tenderness.. ABSENT: distended, guarding, mass, organolmegaly, rebound, tenderness Rectal exam: PRESENT: deferred Extremities exam: PRESENT: full ROM. ABSENT: calf tenderness, clubbing, pedal edema Musculoskeletal exam: PRESENT: ambulatory Neurological exam: PRESENT: alert, awake, oriented to person, oriented to place , oriented to time, oriented to situation, CN II-XII grossly intact. ABSENT: motor sensory deficit Psychiatric exam: PRESENT: appropriate affect, normal mood. ABSENT: homicidal ideation, suicidal ideation Skin exam: PRESENT: dry, intact, warm. ABSENT: cyanosis, rash Results Laboratory Results: 06/10/17 08:18 06/10/17 08:18 06/10/17 06/10/17 08:18 08:18 WBC 8.1 RBC 3.92 Hgb 11.7 L Hct 34.8 L MCV 89 MCH 29.8 MCHC 33.6 RDW 14.2 H Plt Count 212 Seg Neutrophils % 60.2 Lymphocytes % 24.4 Monocytes % 11.2 Eosinophils % 3.6 Basophils % 0.6 Absolute Neutrophils 4.9 Absolute Lymphocytes 2.0 Absolute Monocytes 0.9 Absolute Eosinophils 0.3 Absolute Basophils 0.1 Sodium 141.1 Potassium 5.3 H Chloride 107 Carbon Dioxide 25 Anion Gap 9 BUN 19 Creatinine 2.59 H Est GFR ( Amer) 28 L Est GFR (Non-Af Amer) 23 L Glucose 83 Calcium 9.0 Phosphorus 5.1 H Magnesium 1.9 Impressions: Limited or Localized CT 06/08/17 22:22 IMPRESSION: NO SIGNIFICANT OR ACUTE PROCESS IN THE ABDOMEN OR PELVIS. Renal Ultrasound 06/09/17 00:00 IMPRESSION: NORMAL RENAL AND BLADDER ULTRASOUND. Assessment & Plan - Diagnosis (1) ARF (acute renal failure) Qualifiers: Acute renal failure type: unspecified Qualified Code(s): N17.9 - Acute kidney failure, unspecified Is this a current diagnosis for this admission?: Yes Plan: Likely secondary to acute tubular necrosis possibly due to treatment with Cipro and Motrin. I increased her IV fluids 175 cc an hour yesterday . Her renal ultrasound was negative as well as CT scan of the abdomen and pelvis for any acute abnormalities. She is being followed by nephrology and we certainly appreciate their input. She will have a chemistry panel drawn in the morning. (2) Abdominal pain Qualifiers: Abdominal location: upper abdomen, unspecified Qualified Code(s): R10.10 - Upper abdominal pain, unspecified Is this a current diagnosis for this admission?: Yes Plan: Secondary to acute renal failure. Improving (3) Anemia Plan: Likely secondary to hemodilution. She will have a CBC drawn in the morning. (4) Nausea Is this a current diagnosis for this admission?: Yes Plan: Secondary to acute renal failure. Resolved. She has no complaints of being nauseated overnight. She does have antiemetics available as needed. (5) Hyperkalemia Plan: This is quite mild and secondary to acute renal failure. Nephrology is following. - Time Time Spent with patient: 15-24 minutes - Inpatient Certification Medical Necessity: Need For IV Fluids - Inpatient hospitalization remains necessary. The patient still has acute renal failure although her creatinine is improving. She requires further parenteral fluids and evaluation by nephrology. Hopefully she can be discharged home in the next 24-48 hours of her creatinine continues to improve.
[2017-06-10] MEDS: PROMETHAZINE HCL 25 MG TABLET PO PRN (12:44)
[2017-06-10] MEDS: ACETAMINOPHEN 325 MG TABLET PO PRN (13:37)
--- NOTE | 2017-06-10 14:31 | RADIOLOGY REPORT (SQ) ---
EXAM DESCRIPTION: CHEST PA/LAT COMPLETED DATE/TIME: 06/10/2017 2:20 pm REASON FOR STUDY: Chest pain COMPARISON: None. EXAM PARAMETERS: NUMBER OF VIEWS: two views TECHNIQUE: Digital Frontal and Lateral radiographic views of the chest acquired. RADIATION DOSE: NA LIMITATIONS: none FINDINGS: LUNGS AND PLEURA: No opacities, masses or pneumothorax. No pleural effusion. MEDIASTINUM AND HILAR STRUCTURES: No masses or contour abnormalities. HEART AND VASCULAR STRUCTURES: Heart normal size. No evidence for failure. BONES: No acute findings. HARDWARE: None in the chest. OTHER: No other significant finding. IMPRESSION: NO SIGNIFICANT RADIOGRAPHIC FINDING IN THE CHEST. TECHNICAL DOCUMENTATION: JOB ID: [id number] [employer]- All Rights Reserved
--- NOTE | 2017-06-10 18:06 | PDOC PROGRESS REPORT ---
Subjective Progress Note for:: 06/10/17 Subjective:: At the time of seeing the patient she was complaining of chest pain. According to her it felt like a heavy pressure. It did not radiate anywhere. When she gets pain medication it makes her feel better. It is not associated with SOB or diaphoresis. EKG and chest x-ray did not show anything abnormal. She is producing more urine. She produced 2.1L yesterday. Denies any change in the color of the urine or blood in her urine. Physical Exam Vital Signs: Temp Pulse Resp BP Pulse Ox 97.7 F 89 16 126/76 H 100 06/10/17 07:55 06/10/17 14:00 06/10/17 12:20 06/10/17 07:55 06/10/17 12:20 Intake & Output 06/09/17 06/10/17 06/11/17 06:59 06:59 06:59 Intake Total 4065 Output Total 2100 Balance 1965 Weight 92.164 kg General appearance: PRESENT: mild distress - -in mild pain, well-developed, well -nourished Head exam: PRESENT: atraumatic, normocephalic Mouth exam: PRESENT: moist, neck supple, tongue midline Neck exam: PRESENT: full ROM. ABSENT: JVD, tracheal deviation Respiratory exam: PRESENT: clear to auscultation alberto. ABSENT: accessory muscle use, chest wall tenderness Cardiovascular exam: PRESENT: RRR, +S1, +S2 GI/Abdominal exam: PRESENT: normal bowel sounds, soft. ABSENT: distended, guarding, organomegaly, rebound, tenderness Extremities exam: PRESENT: full ROM. ABSENT: calf tenderness, pedal edema Musculoskeletal exam: PRESENT: normal inspection. ABSENT: deformity, tenderness Neurological exam: PRESENT: alert, awake, oriented to person, oriented to place , oriented to time, oriented to situation Psychiatric exam: PRESENT: appropriate affect, normal mood Skin exam: PRESENT: dry, intact, warm. ABSENT: cyanosis, rash Results Laboratory Results: 06/10/17 08:18 06/10/17 08:18 06/10/17 06/10/17 08:18 08:18 WBC 8.1 RBC 3.92 Hgb 11.7 L Hct 34.8 L MCV 89 MCH 29.8 MCHC 33.6 RDW 14.2 H Plt Count 212 Seg Neutrophils % 60.2 Lymphocytes % 24.4 Monocytes % 11.2 Eosinophils % 3.6 Basophils % 0.6 Absolute Neutrophils 4.9 Absolute Lymphocytes 2.0 Absolute Monocytes 0.9 Absolute Eosinophils 0.3 Absolute Basophils 0.1 Sodium 141.1 Potassium 5.3 H Chloride 107 Carbon Dioxide 25 Anion Gap 9 BUN 19 Creatinine 2.59 H Est GFR ( Amer) 28 L Est GFR (Non-Af Amer) 23 L Glucose 83 Calcium 9.0 Phosphorus 5.1 H Magnesium 1.9 06/10/17 06:35 NT-Pro-B Natriuret Pep 827 H Impressions: Limited or Localized CT 06/08/17 22:22 IMPRESSION: NO SIGNIFICANT OR ACUTE PROCESS IN THE ABDOMEN OR PELVIS. Renal Ultrasound 06/09/17 00:00 IMPRESSION: NORMAL RENAL AND BLADDER ULTRASOUND. Chest X-Ray 06/10/17 00:00 IMPRESSION: NO SIGNIFICANT RADIOGRAPHIC FINDING IN THE CHEST. Assessment & Plan - Diagnosis (1) Anemia Plan: Stable (2) ARF (acute renal failure) Qualifiers: Acute renal failure type: unspecified Qualified Code(s): N17.9 - Acute kidney failure, unspecified Is this a current diagnosis for this admission?: Yes Plan: Looks to be improving. Continue on NS at current rate. Patient is producing good urine out put. Will get a renal artery doppler of the kidneys to rule out renal artery disease (3) Abdominal pain Qualifiers: Abdominal location: upper abdomen, unspecified Qualified Code(s): R10.10 - Upper abdominal pain, unspecified Is this a current diagnosis for this admission?: Yes Plan: resolved (4) Nausea Is this a current diagnosis for this admission?: Yes Plan: resolved
[2017-06-10 21:49] LABS: ARTERIAL BLOOD BASE EXCESS -0.3 mmol/L; ARTERIAL BLOOD O2 SATURATION 60.9 % (94-98)
[2017-06-10] MEDS ORDERED: SODIUM POLYSTYRENE SULFONATE 15 GM/60 ML PO ONE (22:30)
--- NOTE | 2017-06-10 22:49 | EKG REPORT ---
SEVERITY:- NORMAL ECG - SINUS RHYTHM : Confirmed by: Josh Pan 10-Jun-2017 22:48:23
[2017-06-11] MEDS: HYDROCODONE/ACETAMINOPHEN 5-325 MG TABLET PO PRN ×2 (00:35→06:29)
[2017-06-11 06:48] LABS: ANION GAP 12 (5-19); BLOOD UREA NITROGEN 14 mg/dL (7-20); CALCIUM 9.1 mg/dL (8.4-10.2); CARBON DIOXIDE 25 mmol/L (22-30); CHLORIDE 106 mmol/L (98-107); CREATININE RESULT 1.76 mg/dL (0.52-1.25); GLUCOSE 85 mg/dL (75-110); MAGNESIUM 1.7 mg/dL (1.6-2.3); PHOSPHORUS 4.7 mg/dL (2.5-4.5); POTASSIUM 4.5 mmol/L (3.6-5.0); SODIUM 142.8 mmol/L (137-145)
--- NOTE | 2017-06-11 07:27 | RADIOLOGY REPORT (SQ) ---
EXAM DESCRIPTION: U/S LTD DUPLEX ART/KYLAH FLOW COMPLETED DATE/TIME: 06/11/2017 6:34 am REASON FOR STUDY: Flank pain/visualize renal arteries using doppler COMPARISON: Ultrasound renal, 06/09/2017. CT renal, 06/08/2017. TECHNIQUE: Realtime and static grayscale images acquired. Selected color Doppler, velocities and spe ctral images recorded. LIMITATIONS: None. FINDINGS: RIGHT KIDNEY: RENAL ARTERY VELOCITIES: 112 cm/sec. Segmental artery velocity 49 cm/sec. RENAL VEIN: Color doppler flow present, patent. VELOCITY RATIO: 2.0. Normal waveforms. KIDNEY: Normal size. No significant pathology. LEFT KIDNEY: RENAL ARTERY VELOCITIES: 46 cm/sec. Segmental artery velocity 45 cm/sec. RENAL VEIN: Color doppler flow present, patent. VELOCITY RATIO: 0.8. Normal waveforms. KIDNEY: Normal size. No significant pathology. BLADDER: Normal. OTHER: No other significant finding. IMPRESSION: NO DOPPLER EVIDENCE OF HEMODYNAMICALLY SIGNIFICANT RENAL ARTERY STENOSIS. COMMENT: NORMAL RENAL ARTERY/AORTA VELOCITY RATIO IS LESS THAN OR EQUAL TO 3.5. TECHNICAL DOCUMENTATION: JOB ID: [id number] [employer]- All Rights Reserved
[2017-06-11] MEDS: HEPARIN SOD (PORCINE) 5,000 UNIT/ML 1 ML SYRINGE SUBCUT SCH ×2 (11:01→21:20)
[2017-06-11] MEDS: DOCUSATE SODIUM 100 MG CAPSULE PO SCH ×2 (11:01→17:27)
[2017-06-11] MEDS: METOCLOPRAMIDE HCL 10 MG TABLET PO SCH ×3 (11:53→21:21)
--- NOTE | 2017-06-11 12:22 | PDOC PROGRESS REPORT ---
Subjective Progress Note for:: 06/11/17 Subjective:: Patient continues to have chest pain. Earlier this morning the chest pain was associated with shortness of breath. Patient does have a history of anxiety and asthma. She denies this being like any previous asthma attacks or anxiety attacks. Chest pain is not able to be reproduced by palpation. Currently at the time of examination she is not short of breath. She did state that she was tired because she was having trouble breathing while sleeping. She produced 1.9 L of urine yesterday Physical Exam Vital Signs: Temp Pulse Resp BP Pulse Ox 97.8 F 89 12 126/71 H 95 06/11/17 08:15 06/11/17 09:41 06/11/17 09:41 06/11/17 08:15 06/11/17 09:41 Intake & Output 06/10/17 06/11/17 06/12/17 06:59 06:59 06:59 Intake Total 4065 7773 Output Total 2100 1900 Balance 1965 5873 Weight 92.164 kg General appearance: PRESENT: mild distress, well-developed, well-nourished Head exam: PRESENT: atraumatic, normocephalic Mouth exam: PRESENT: moist, tongue midline Neck exam: PRESENT: full ROM. ABSENT: JVD, tracheal deviation Respiratory exam: PRESENT: clear to auscultation alberto. ABSENT: accessory muscle use, chest wall tenderness, crackles, decreased breath sounds, rhonchi, wheezes Cardiovascular exam: PRESENT: RRR, +S1, +S2 GI/Abdominal exam: PRESENT: normal bowel sounds, soft. ABSENT: distended, guarding, organomegaly, rebound, tenderness Extremities exam: ABSENT: calf tenderness, joint swelling, pedal edema, tenderness Musculoskeletal exam: PRESENT: normal inspection. ABSENT: deformity, tenderness Neurological exam: PRESENT: alert, awake, oriented to person, oriented to place , oriented to time, oriented to situation Psychiatric exam: PRESENT: appropriate affect, normal mood Skin exam: PRESENT: dry, intact, warm. ABSENT: cyanosis, rash Results Laboratory Results: 06/10/17 08:18 06/11/17 06:17 06/10/17 06/11/17 21:18 06:17 Carbonic Acid 1.50 H HCO3/H2CO3 Ratio 17:1 ABG pH 7.34 L ABG pCO2 49.7 H ABG pO2 34.0 L* ABG HCO3 26.0 ABG O2 Saturation 60.9 L ABG Base Excess -0.3 FiO2 21% Sodium 142.8 Potassium 4.5 Chloride 106 Carbon Dioxide 25 Anion Gap 12 BUN 14 Creatinine 1.76 H Est GFR ( Amer) 44 L Est GFR (Non-Af Amer) 36 L Glucose 85 Calcium 9.1 Phosphorus 4.7 H Magnesium 1.7 06/10/17 06:35 NT-Pro-B Natriuret Pep 827 H Impressions: Limited or Localized CT 06/08/17 22:22 IMPRESSION: NO SIGNIFICANT OR ACUTE PROCESS IN THE ABDOMEN OR PELVIS. Renal Ultrasound 06/09/17 00:00 IMPRESSION: NORMAL RENAL AND BLADDER ULTRASOUND. Chest X-Ray 06/10/17 00:00 IMPRESSION: NO SIGNIFICANT RADIOGRAPHIC FINDING IN THE CHEST. Vascular Ultrasound 06/11/17 01:00 IMPRESSION: NO DOPPLER EVIDENCE OF HEMODYNAMICALLY SIGNIFICANT RENAL ARTERY STENOSIS. Assessment & Plan - Diagnosis (1) Anemia Plan: Stable (2) ARF (acute renal failure) Qualifiers: Acute renal failure type: unspecified Qualified Code(s): N17.9 - Acute kidney failure, unspecified Is this a current diagnosis for this admission?: Yes Plan: Looks to be improving. Decreasing NS to a rate of 100mL an hour. Patient is producing good urine out put. renal doppler was normal (3) Chest pain Plan: Is now associated with SOB, will order a V/Q scan to check for PE. ABG had minor hypercapnia. O2 sats changed from 100% to 95% with no change from room air. - Notes Notes: Patients kideny function is improving. Looks to be able to be followed up out patient. Will have her follow up a week after discharge with Dr. De Oliveira or myself. As far is the chest, will order VQ scan to rule out PE.
[2017-06-11] MEDS: ALBUTEROL SULFATE 0.083% NEB 2.5 MG/3 ML AMPUL NEB SCH ×2 (14:04→20:55)
--- NOTE | 2017-06-11 15:25 | RADIOLOGY REPORT (SQ) ---
EXAM DESCRIPTION: NM LUNG VENT/PERF SCAN COMPLETED DATE/TIME: 06/11/2017 3:19 pm REASON FOR STUDY: Chest pain with increase SOB COMPARISON: Two-view chest 06/10/2017 RADIONUCLIDE AND DOSE: 5.1 millicuries TC-99m MAA Intravenous 29.9 millicuries TC-99m DTPA Inhaled aerosol TECHNIQUE: Eight views of the lungs acquired post ventilation of DTPA aerosol. Eight matching views of the lungs acquired following injection of MAA. LIMITATIONS: None. FINDINGS: VENTILATION: Symmetric and homogeneous distribution of DTPA aerosol during ventilatory pha se. No significant areas of photopenia. PERFUSION: Perfusion images with normal homogenous activity and no wedge-shaped or segmental defects. No ventilation-perfusion mismatches. OTHER: No other significant finding. IMPRESSION: NORMAL VENTILATION-PERFUSION LUNG SCAN. NEGATIVE FOR PULMONARY EMBOLI. TECHNICAL DOCUMENTATION: JOB ID: [id number] [employer]- All Rights Reserved
--- NOTE | 2017-06-11 16:11 | PDOC PROGRESS REPORT ---
Subjective Progress Note for:: 06/11/17 Subjective:: Patient reports having some chest pain associated with her asthma last night. Also complains of nausea. Physical Exam Vital Signs: Temp Pulse Resp BP Pulse Ox 98.1 F 91 16 129/75 H 97 06/11/17 11:33 06/11/17 14:04 06/11/17 14:04 06/11/17 11:33 06/11/17 14:04 Intake & Output 06/10/17 06/11/17 06/12/17 06:59 06:59 06:59 Intake Total 4065 7773 Output Total 2100 1900 Balance 1965 5873 Weight 92.164 kg General appearance: PRESENT: no acute distress Eye exam: PRESENT: conjunctiva pink. ABSENT: scleral icterus Mouth exam: PRESENT: moist, tongue midline Neck exam: ABSENT: JVD Respiratory exam: PRESENT: clear to auscultation alberto. ABSENT: rales, rhonchi, wheezes Cardiovascular exam: PRESENT: RRR. ABSENT: diastolic murmur, rubs, systolic murmur GI/Abdominal exam: PRESENT: normal bowel sounds, soft. ABSENT: distended, guarding, mass, organolmegaly, rebound, tenderness Extremities exam: ABSENT: calf tenderness, clubbing, pedal edema Neurological exam: PRESENT: alert, awake, oriented to person, oriented to place , oriented to time, oriented to situation, CN II-XII grossly intact. ABSENT: motor sensory deficit Psychiatric exam: PRESENT: appropriate affect Skin exam: PRESENT: dry, intact, warm. ABSENT: cyanosis, rash Results Laboratory Results: 06/10/17 08:18 06/11/17 06:17 06/10/17 06/11/17 21:18 06:17 Carbonic Acid 1.50 H HCO3/H2CO3 Ratio 17:1 ABG pH 7.34 L ABG pCO2 49.7 H ABG pO2 34.0 L* ABG HCO3 26.0 ABG O2 Saturation 60.9 L ABG Base Excess -0.3 FiO2 21% Sodium 142.8 Potassium 4.5 Chloride 106 Carbon Dioxide 25 Anion Gap 12 BUN 14 Creatinine 1.76 H Est GFR ( Amer) 44 L Est GFR (Non-Af Amer) 36 L Glucose 85 Calcium 9.1 Phosphorus 4.7 H Magnesium 1.7 06/10/17 06:35 NT-Pro-B Natriuret Pep 827 H Impressions: Limited or Localized CT 06/08/17 22:22 IMPRESSION: NO SIGNIFICANT OR ACUTE PROCESS IN THE ABDOMEN OR PELVIS. Renal Ultrasound 06/09/17 00:00 IMPRESSION: NORMAL RENAL AND BLADDER ULTRASOUND. Chest X-Ray 06/10/17 00:00 IMPRESSION: NO SIGNIFICANT RADIOGRAPHIC FINDING IN THE CHEST. Lung Scan-VQ NM 06/11/17 00:00 IMPRESSION: NORMAL VENTILATION-PERFUSION LUNG SCAN. NEGATIVE FOR PULMONARY EMBOLI. Vascular Ultrasound 06/11/17 01:00 IMPRESSION: NO DOPPLER EVIDENCE OF HEMODYNAMICALLY SIGNIFICANT RENAL ARTERY STENOSIS. Assessment & Plan - Diagnosis (1) ARF (acute renal failure) Qualifiers: Acute renal failure type: unspecified Qualified Code(s): N17.9 - Acute kidney failure, unspecified Is this a current diagnosis for this admission?: Yes Plan: Patient continues to improve with IV fluids. (2) Abdominal pain Qualifiers: Abdominal location: upper abdomen, unspecified Qualified Code(s): R10.10 - Upper abdominal pain, unspecified Is this a current diagnosis for this admission?: Yes Plan: Patient reports that she has not moved her bowels and has had some reflux type symptoms. Will start on Reglan. (3) Anemia Is this a current diagnosis for this admission?: Yes Plan: Hemoglobin remained stable. (4) Chest pain Is this a current diagnosis for this admission?: Yes Plan: Most likely related to her asthma. Will start on albuterol nebulizers (5) Hyperkalemia Is this a current diagnosis for this admission?: Yes Plan: Resolved (6) Nausea Is this a current diagnosis for this admission?: Yes Plan: Is likely secondary to gastroesophageal reflux disease. We will give Reglan. - Time Time Spent with patient: 25-34 minutes
[2017-06-11] MEDS: ACETAMINOPHEN 325 MG TABLET PO PRN (16:32)
[2017-06-11] MEDS: NORMAL SALINE 1000 ML 1,000 ML IV PRN (18:04)
[2017-06-12] MEDS: ALBUTEROL SULFATE 0.083% NEB 2.5 MG/3 ML AMPUL NEB SCH ×2 (02:01→08:16)
[2017-06-12] MEDS: NORMAL SALINE 1000 ML 1,000 ML IV PRN (03:10)
[2017-06-12] MEDS: ACETAMINOPHEN 325 MG TABLET PO PRN (05:51)
[2017-06-12 06:34] LABS: ABSOLUTE BASOPHILS # (AUTO) 0.1 10^3/uL (0.0-0.2); ABSOLUTE EOSINOPHILS # (AUTO) 0.1 10^3/uL (0.0-0.6); ABSOLUTE LYMPHOCYTES (AUTO) 1.8 10^3/uL (0.5-4.7); ABSOLUTE MONOCYTES (AUTO) 0.8 10^3/uL (0.1-1.4); ABSOLUTE NEUT (AUTO) 5.6 10^3/uL (1.7-8.2); BASOPHILS % (AUTO) 0.6 % (0-2); HEMATOCRIT 33.4 % (36.0-47.0); HEMOGLOBIN 11.4 g/dL (12.0-15.5); HGB HCT DIFFERENCE 0.8; LYMPHOCYTES % (AUTO) 21.8 % (13-45); MEAN CORPUSCULAR HEMOGLOBIN 29.6 pg (27.0-33.4); MEAN CORPUSCULAR HGB CONC 34.1 g/dL (32.0-36.0); MEAN CORPUSCULAR VOLUME 87 fl (80-97); MONOCYTES % (AUTO) 9.7 % (3-13); RED BLOOD COUNT 3.85 10^6/uL (3.72-5.28); RED CELL DISTRIBUTION WIDTH 14.4 % (11.5-14.0); SEGMENTED NEUTROPHILS % (AUTO) 66.9 % (42-78); WHITE BLOOD COUNT 8.4 10^3/uL (4.0-10.5)
[2017-06-12 06:49] LABS: ANION GAP 12 (5-19); BLOOD UREA NITROGEN 12 mg/dL (7-20); CALCIUM 9.1 mg/dL (8.4-10.2); CARBON DIOXIDE 25 mmol/L (22-30); CHLORIDE 104 mmol/L (98-107); CREATININE RESULT 1.29 mg/dL (0.52-1.25); GLUCOSE 91 mg/dL (75-110); POTASSIUM 3.8 mmol/L (3.6-5.0); SODIUM 140.6 mmol/L (137-145)
[2017-06-12] MEDS: METOCLOPRAMIDE HCL 10 MG TABLET PO SCH (08:24)
[2017-06-12 09:16] VITALS: BP 130/82
--- NOTE | 2017-06-12 14:56 | PDOC DISCHARGE SUMMARY ---
General - Admit/Disc Date/PCP Admission Date/Primary Care Provider: 06/09/17 07:03 Discharge Date: 06/12/17 - Discharge Diagnosis (1) ARF (acute renal failure) Is this a current diagnosis for this admission?: Yes Summary: Secondary to dehydration and possibly also ciprofloxacin. (2) Abdominal pain Is this a current diagnosis for this admission?: Yes Summary: Probably secondary to gastroesophageal reflux disease. (3) Anemia Is this a current diagnosis for this admission?: Yes (4) Chest pain Is this a current diagnosis for this admission?: Yes Summary: Independence to be secondary to her underlying asthma. (5) Hyperkalemia Is this a current diagnosis for this admission?: Yes (6) Nausea Is this a current diagnosis for this admission?: Yes Summary: Resolved with Reglan. - Additional Information Resuscitation Status: Full Code Discharge Diet: Regular Discharge Activity: Activity As Tolerated Home Medications: Albuterol Sulfate [Proair HFA Inhalation Aerosol 8.5 gm MDI] 1 puff IH Q4 PRN # 1 mdi 06/12/17 Hydrocodone/Acetaminophen [Henderson 5-325 mg Tablet] 1 tab PO Q6HP PRN #10 tablet 06/12/17 Metoclopramide HCl [Reglan 10 mg Tablet] 5 mg PO ACHS PRN #10 tablet 06/12/17 Promethazine HCl [Phenergan 25 mg Tablet] 12.5 mg PO Q6HP PRN #30 tablet History of Present Illness History of Present Illness: MATHEW COURTNEY is a 21 year old female who has no history of renal problems who presented with a 24 history of nausea, upper abdominal cramping. The patient had recently been started on ciprofloxacin for a dental infection. The patient had not had any fevers or chills. When she presented to emergency room she was found to have acute renal failure most likely secondary to decreased p.o. intake and dehydration. It is felt this possibly may have been related to the ciprofloxacin. Patient is admitted for treatment of her acute renal failure with IV fluids. Hospital Course Hospital Course: 21-year-old female who presented with acute renal failure secondary to dehydration and possibly ciprofloxacin. Patient was given IV fluids and her creatinine improved. On the day of discharge her creatinine was down to 1.29. The patient was evaluated by nephrology who recommended a renal vascular ultrasound showed no evidence for renal artery stenosis. The patient also had complaints of chest pain and had a VQ scan that was normal. The patient most likely has asthma as the cause for her chest tightness. She does have a history of asthma. Patient also complained of abdominal pain and was given Reglan with complete resolution of her abdominal pain. The patient was tolerating a diet well. It was felt that she was stable for discharge to home. 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 Physical Exam Vital Signs: Temp Pulse Resp BP Pulse Ox 98.9 F 85 15 130/82 H 98 06/12/17 09:09 06/12/17 09:09 06/12/17 09:09 06/12/17 09:09 06/12/17 09:09 Intake & Output 06/11/17 06/12/17 06/13/17 06:59 06:59 06:59 Intake Total 7773 7074 Output Total 1900 4100 Balance 5873 2974 General appearance: PRESENT: no acute distress Eye exam: PRESENT: conjunctiva pink. ABSENT: scleral icterus Mouth exam: PRESENT: moist, tongue midline Neck exam: ABSENT: JVD Respiratory exam: PRESENT: clear to auscultation alberto. ABSENT: rales, rhonchi, wheezes Cardiovascular exam: PRESENT: RRR. ABSENT: diastolic murmur, rubs, systolic murmur GI/Abdominal exam: PRESENT: normal bowel sounds, soft. ABSENT: distended, guarding, mass, organolmegaly, rebound, tenderness Extremities exam: ABSENT: calf tenderness, clubbing, pedal edema Neurological exam: PRESENT: alert, awake, oriented to person, oriented to place , oriented to time, oriented to situation, CN II-XII grossly intact. ABSENT: motor sensory deficit Psychiatric exam: PRESENT: appropriate affect Skin exam: PRESENT: dry, intact, warm. ABSENT: cyanosis, rash Results Laboratory Results: 06/12/17 06:11 06/12/17 06:11 06/12/17 06/12/17 06:11 06:11 WBC 8.4 RBC 3.85 Hgb 11.4 L Hct 33.4 L MCV 87 MCH 29.6 MCHC 34.1 RDW 14.4 H Plt Count 193 Seg Neutrophils % 66.9 Lymphocytes % 21.8 Monocytes % 9.7 Eosinophils % 1.0 Basophils % 0.6 Absolute Neutrophils 5.6 Absolute Lymphocytes 1.8 Absolute Monocytes 0.8 Absolute Eosinophils 0.1 Absolute Basophils 0.1 Sodium 140.6 Potassium 3.8 Chloride 104 Carbon Dioxide 25 Anion Gap 12 BUN 12 Creatinine 1.29 H Est GFR ( Amer) > 60 Est GFR (Non-Af Amer) 52 L Glucose 91 Calcium 9.1 06/10/17 06:35 NT-Pro-B Natriuret Pep 827 H Impressions: Limited or Localized CT 06/08/17 22:22 IMPRESSION: NO SIGNIFICANT OR ACUTE PROCESS IN THE ABDOMEN OR PELVIS. Renal Ultrasound 06/09/17 00:00 IMPRESSION: NORMAL RENAL AND BLADDER ULTRASOUND. Chest X-Ray 06/10/17 00:00 IMPRESSION: NO SIGNIFICANT RADIOGRAPHIC FINDING IN THE CHEST. Lung Scan-VQ NM 06/11/17 00:00 IMPRESSION: NORMAL VENTILATION-PERFUSION LUNG SCAN. NEGATIVE FOR PULMONARY EMBOLI. Vascular Ultrasound 06/11/17 01:00 IMPRESSION: NO DOPPLER EVIDENCE OF HEMODYNAMICALLY SIGNIFICANT RENAL ARTERY STENOSIS. Qualifiers PATEINT BEING DISCHARGED WITH ANY OF THE FOLLOWING DIAGNOSIS?: No Plan Discharge Plan: Patient is discharged home. Will follow up with nephrology in 1 week. Time Spent: Less than 30 Minutes
== END 2017-06-12 09:57 | disposition home or self-care (01) | DRG 684 ==
LOC: ER 20:20 → EH 06-09 05:49 → UNDOADMIN 06-09 05:49 → EH 06-09 07:03 → 4S 06-09 08:49
PROVIDERS: ADMIT Family Medicine; ATTEND Internal Medicine
DX: N17.9 Acute kidney failure, unspecified (principal); E86.0 Dehydration; K21.9 Gastro-esophageal reflux disease without esophagitis; D64.9 Anemia, unspecified; E87.5 Hyperkalemia; J45.909 Unspecified asthma, uncomplicated; Z79.899 Other long term (current) drug therapy; Z87.11 Personal history of peptic ulcer disease; Z88.1 Allergy status to other antibiotic agents; Z91.018 Allergy to other foods
CPT/HCPCS: 36415; 36600; 71020; 76380; 76770; 78582; 80048; 80053; 81001; 82803; 83690; 83735; 83880; 84100; 84703; 85025; 85379; 93005; 93010; 93976; 94640; 96361; 96374; 96375; 96376; 99285; A9540; A9567; J1644; J1885; J2270; J2405; J7030; Q9969

== ENCOUNTER → 2017-06-18 | Outpatient (CLI) | payer OTHER ==
[2017-06-18 13:48] LABS: ABSOLUTE BASOPHILS # (AUTO) 0.1 10^3/uL (0.0-0.2); ABSOLUTE EOSINOPHILS # (AUTO) 0.5 10^3/uL (0.0-0.6); ABSOLUTE LYMPHOCYTES (AUTO) 2.3 10^3/uL (0.5-4.7); ABSOLUTE MONOCYTES (AUTO) 0.8 10^3/uL (0.1-1.4); ABSOLUTE NEUT (AUTO) 5.5 10^3/uL (1.7-8.2); BASOPHILS % (AUTO) 0.8 % (0-2); HEMATOCRIT 38.5 % (36.0-47.0); HEMOGLOBIN 13.2 g/dL (12.0-15.5); HGB HCT DIFFERENCE 1.1; LYMPHOCYTES % (AUTO) 25.3 % (13-45); MEAN CORPUSCULAR HEMOGLOBIN 29.5 pg (27.0-33.4); MEAN CORPUSCULAR HGB CONC 34.3 g/dL (32.0-36.0); MEAN CORPUSCULAR VOLUME 86 fl (80-97); MONOCYTES % (AUTO) 8.6 % (3-13); RED BLOOD COUNT 4.48 10^6/uL (3.72-5.28); RED CELL DISTRIBUTION WIDTH 14.3 % (11.5-14.0); SEGMENTED NEUTROPHILS % (AUTO) 60.3 % (42-78); WHITE BLOOD COUNT 9.1 10^3/uL (4.0-10.5)
[2017-06-18 13:53] LABS: APPEARANCE,URINE SLIGHTLY-CLOUDY; BILIRUBIN,URINE NEGATIVE (NEGATIVE); GLUCOSE, URINE NEGATIVE (NEGATIVE); KETONES,URINE NEGATIVE (NEGATIVE); LEUKOCYTE ESTERASE,URINE MODERATE (NEGATIVE); NITRITE,URINE NEGATIVE (NEGATIVE); PROTEIN,URINE NEGATIVE (NEGATIVE); URINE SPECIFIC GRAVITY 1.011; UROBILINOGEN,URINE NEGATIVE mg/dL (<2.0)
[2017-06-18 14:28] LABS: ALANINE AMINOTRANSFERASE 39 U/L (9-52); ALBUMIN 4.7 g/dL (3.5-5.0); ALKALINE PHOSPHATASE 98 U/L (38-126); ANION GAP 15 (5-19); ASPARTATE AMINO TRANSFERASE 31 U/L (14-36); BILIRUBIN,DIRECT 0.4 mg/dL (0.0-0.4); BILIRUBIN,TOTAL 0.6 mg/dL (0.2-1.3); BLOOD UREA NITROGEN 14 mg/dL (7-20); CALCIUM 10.2 mg/dL (8.4-10.2); CARBON DIOXIDE 26 mmol/L (22-30); CHLORIDE 102 mmol/L (98-107); CREATINE KINASE 95 U/L (30-135); CREATININE RESULT 0.95 mg/dL (0.52-1.25); GLUCOSE 78 mg/dL (75-110); LDH 659 U/L (313-618); POTASSIUM 4.8 mmol/L (3.6-5.0); SODIUM 142.5 mmol/L (137-145); TOTAL PROTEIN 8.2 g/dL (6.3-8.2)
[2017-06-19 08:41] LABS: COMPLEMENT C4 51 mg/dL (14-44)
[2017-06-19 09:14] LABS: COMPLEMENT C3 202 mg/dL (82-167)
[2017-06-25 07:09] LABS: COMPLEMENT TOTAL (CH50) 18 U/mL (42-60)
== END ==
LOC: OD 12:28
PROVIDERS: ATTEND Internal Medicine Nephrology
DX: N17.9 Acute kidney failure, unspecified (principal); R19.7 Diarrhea, unspecified; R10.9 Unspecified abdominal pain
CPT/HCPCS: 36415; 80053; 81001; 82550; 83615; 85025; 86060; 86160; 86162

== ENCOUNTER → 2017-06-26 | Outpatient (CLI) | payer OTHER ==
[2017-06-26 12:29] LABS: ABSOLUTE BASOPHILS # (AUTO) 0.1 10^3/uL (0.0-0.2); ABSOLUTE EOSINOPHILS # (AUTO) 0.3 10^3/uL (0.0-0.6); ABSOLUTE LYMPHOCYTES (AUTO) 2.3 10^3/uL (0.5-4.7); ABSOLUTE MONOCYTES (AUTO) 0.7 10^3/uL (0.1-1.4); ABSOLUTE NEUT (AUTO) 4.7 10^3/uL (1.7-8.2); BASOPHILS % (AUTO) 0.8 % (0-2); EOSINOPHILS % (AUTO) 3.5 % (0-6); HEMATOCRIT 37.6 % (36.0-47.0); HEMOGLOBIN 12.7 g/dL (12.0-15.5); HGB HCT DIFFERENCE 0.5; LYMPHOCYTES % (AUTO) 28.4 % (13-45); MEAN CORPUSCULAR HEMOGLOBIN 29.4 pg (27.0-33.4); MEAN CORPUSCULAR HGB CONC 33.8 g/dL (32.0-36.0); MEAN CORPUSCULAR VOLUME 87 fl (80-97); MONOCYTES % (AUTO) 8.8 % (3-13); RED BLOOD COUNT 4.33 10^6/uL (3.72-5.28); RED CELL DISTRIBUTION WIDTH 13.8 % (11.5-14.0); SEGMENTED NEUTROPHILS % (AUTO) 58.5 % (42-78)
[2017-06-26 12:31] LABS: APPEARANCE,URINE CLEAR; BILIRUBIN,URINE NEGATIVE (NEGATIVE); GLUCOSE, URINE NEGATIVE (NEGATIVE); KETONES,URINE NEGATIVE (NEGATIVE); LEUKOCYTE ESTERASE,URINE TRACE (NEGATIVE); NITRITE,URINE NEGATIVE (NEGATIVE); PROTEIN,URINE NEGATIVE (NEGATIVE); URINE SPECIFIC GRAVITY 1.012; UROBILINOGEN,URINE NEGATIVE mg/dL (<2.0)
[2017-06-26 12:42] LABS: ALANINE AMINOTRANSFERASE 27 U/L (9-52); ALBUMIN 4.7 g/dL (3.5-5.0); ALKALINE PHOSPHATASE 97 U/L (38-126); ANION GAP 14 (5-19); ASPARTATE AMINO TRANSFERASE 25 U/L (14-36); BILIRUBIN,DIRECT 0.4 mg/dL (0.0-0.4); BILIRUBIN,TOTAL 0.8 mg/dL (0.2-1.3); BLOOD UREA NITROGEN 17 mg/dL (7-20); CALCIUM 10.3 mg/dL (8.4-10.2); CARBON DIOXIDE 24 mmol/L (22-30); CHLORIDE 103 mmol/L (98-107); GLUCOSE 90 mg/dL (75-110); POTASSIUM 4.9 mmol/L (3.6-5.0); SODIUM 140.5 mmol/L (137-145); TOTAL PROTEIN 8.2 g/dL (6.3-8.2)
== END ==
LOC: OD 10:58
PROVIDERS: ATTEND Internal Medicine Nephrology
DX: N18.2 Chronic kidney disease, stage 2 (mild) (principal); R19.7 Diarrhea, unspecified; R10.9 Unspecified abdominal pain
CPT/HCPCS: 36415; 80053; 81001; 85025

== ENCOUNTER 2018-08-11 13:07 | Emergency (ER) | payer SELFPAY ==
[2018-08-11] MEDS ORDERED: ONDANSETRON 4 MG TAB.RAPDIS PO ONE (14:03)
[2018-08-11 14:35] LABS: ABSOLUTE BASOPHILS # (AUTO) 0.1 10^3/uL (0.0-0.2); ABSOLUTE EOSINOPHILS # (AUTO) 0.2 10^3/uL (0.0-0.6); ABSOLUTE LYMPHOCYTES (AUTO) 2.3 10^3/uL (0.5-4.7); ABSOLUTE MONOCYTES (AUTO) 0.9 10^3/uL (0.1-1.4); ABSOLUTE NEUT (AUTO) 5.1 10^3/uL (1.7-8.2); BASOPHILS % (AUTO) 0.7 % (0-2); EOSINOPHILS % (AUTO) 2.7 % (0-6); HEMATOCRIT 38.7 % (36.0-47.0); HEMOGLOBIN 13.2 g/dL (12.0-15.5); LYMPHOCYTES % (AUTO) 27.1 % (13-45); MEAN CORPUSCULAR HEMOGLOBIN 29.9 pg (27.0-33.4); MEAN CORPUSCULAR VOLUME 88 fl (80-97); PLATELET COUNT 254 10^3/uL (150-450); RED CELL DISTRIBUTION WIDTH 13.8 % (11.5-14.0); SEGMENTED NEUTROPHILS % (AUTO) 59.5 % (42-78); TOTAL CELLS COUNTED % (AUTO) 100 %; WHITE BLOOD COUNT 8.6 10^3/uL (4.0-10.5)
[2018-08-11 14:45] LABS: APPEARANCE,URINE CLEAR; BILIRUBIN,URINE NEGATIVE (NEGATIVE); COLOR,URINE STRAW; GLUCOSE, URINE NEGATIVE (NEGATIVE); KETONES,URINE NEGATIVE (NEGATIVE); LEUKOCYTE ESTERASE,URINE NEGATIVE (NEGATIVE); NITRITE,URINE NEGATIVE (NEGATIVE); PROTEIN,URINE NEGATIVE (NEGATIVE); URINE SPECIFIC GRAVITY 1.005; UROBILINOGEN,URINE NEGATIVE mg/dL (<2.0)
--- NOTE | 2018-08-11 15:02 | ER Document Report ---
ED General - General Chief Complaint: Nausea/Vomiting Stated Complaint: NAUSEA/VOMITING Time Seen by Provider: 08/11/18 14:01 TRAVEL OUTSIDE OF THE [place] IN LAST 30 DAYS: No - HPI Notes: Patient is a 23-year-old female with a h/o GERD who presents to the ED with primary concern for possible . Patient states that she started having heavy flow for her menstrual period yesterday which is 4 days early for her. Patient states that she has had a couple episodes of vomiting right after she tried to eat something, but has noted some flareups of her acid reflux which she believes is inducing that. Patient states that she otherwise feels well. Patient states that her menstrual flow has improved and is currently "light." She is otherwise urinating normally and having normal bowel movements. She has not have any concern of pain at this time aside from intermittent cramping which is normal for her during menstrual cycles. She has no concern of STD or STI. Denies any headache, fever, URI, sore throat, chest pain, palpitations, syncope, cough, shortness of breath, wheeze, dyspnea, abdominal pain, nausea/ diarrhea, urinary retention, dysuria, hematuria, back pain, loss of control of bowel or bladder, numbness/tingling, or rash. - Related Data Allergies/Adverse Reactions: Iodinated Contrast- Oral and IV Dye Allergy (Severe, Verified 08/11/18 14:00) Anaphylaxis peanut Allergy (Severe, Verified 08/11/18 14:00) Anaphylaxis Penicillins Allergy (Severe, Verified 08/11/18 14:00) Anaphylaxis shellfish derived Allergy (Severe, Verified 08/11/18 14:00) Anaphylaxis strawberry Allergy (Severe, Verified 08/11/18 14:00) Anaphylaxis amoxicillin Allergy (Intermediate, Verified 08/11/18 14:00) Vomiting cefaclor [From Ceclor] Allergy (Verified 08/11/18 14:00) clindamycin Allergy (Verified 08/11/18 14:00) erythromycin base Allergy (Verified 08/11/18 14:00) ketchup Allergy (Severe, Uncoded 08/11/18 14:00) Anaphylaxis Past Medical History - Social History Smoking Status: Current Every Day Smoker Chew tobacco use (# tins/day): No Frequency of alcohol use: None Drug Abuse: None Family History: Reviewed & Not Pertinent Patient has suicidal ideation: No Patient has homicidal ideation: No - Past Medical History Cardiac Medical History: Denies: Hx Atrial Fibrillation, Hx Congestive Heart Failure, Hx Coronary Artery Disease, Hx DVT, Hx Heart Attack, Hx Hypercholesterolemia, Hx Hypertension, Hx Pulmonary Embolism Pulmonary Medical History: Reports: Hx Asthma - Has not bothered her for years Denies: Hx COPD, Hx Sleep Apnea Neurological Medical History: Reports: Hx Migraine - Occasional. Denies: Hx Seizures Endocrine Medical History: Denies: Hx Diabetes Mellitus Type 1, Hx Diabetes Mellitus Type 2, Hx Hyperthyroidism, Hx Hypothyroidism Renal/ Medical History: Denies: Hx Peritoneal Dialysis GI Medical History: Reports: Hx Gastroesophageal Reflux Disease. Denies: Hx Cirrhosis, Hx Hepatitis Skin Medical History: Reports Hx Eczema Psychiatric Medical History: Reports: Hx Depression Infectious Medical History: Denies: Hx Hepatitis Past Surgical History: Reports: Hx Nose Surgery, Hx Tonsillectomy, Other - Nasal surgery - Immunizations Hx Diphtheria, Pertussis, Tetanus Vaccination: Yes Review of Systems - Review of Systems -: Yes All other systems reviewed and negative Physical Exam - Vital signs Vitals: Temp Pulse Resp BP Pulse Ox 98.6 F 95 15 115/72 100 08/11/18 13:20 08/11/18 13:20 08/11/18 13:20 08/11/18 13:20 08/11/18 13:20 - Notes Notes: PHYSICAL EXAMINATION: GENERAL: Well-appearing, well-nourished and in no acute distress. A&ox4. answers questions appropriately. LUNGS: Breath sounds clear to auscultation bilaterally and equal. No wheezes rales or rhonchi. HEART: Regular rate and rhythm without murmurs, rubs, gallops. ABDOMEN: Soft, nontender, nondistended abdomen. No guarding, no rebound. No masses appreciated. Normal bowel sounds present. No CVA tenderness bilaterally. : deferred. Musculoskeletal: FROM to passive/active. Strength 5+/5. Extremities: No cyanosis, clubbing, or edema b/l. Peripheral pulses 2+. Capillary refill less than 3 seconds. NEUROLOGICAL: Normal speech, normal gait. PSYCH: Normal mood, normal affect. SKIN: Warm, Dry, normal turgor, no rashes or lesions noted. Course - Re-evaluation Re-evalutation: 08/11/18 15:10 Patient is an afebrile, well-hydrated, 23-year-old female who presents to the ED with dysmenorrhea. Vitals are acceptable without any significant tachycardia , tachypnea, or hypoxia. PE is otherwise unremarkable. CBC, CMP, urinalysis, and hCG are unremarkable for any acute pathology. Patient declined any STD or STI testing. Patient is nontoxic-appearing is tolerating p.o. without any difficulties. No other labs or imaging warranted at this time based on H&P. Low suspicion/risk for severe anemia, acute appendicitis, bowel obstruction, acute cholecystitis, acute cholangitis, perforated diverticulitis, incarcerated hernia, pancreatitis, perforated ulcer, peritonitis, sepsis, pelvic inflammatory disease, ectopic , tubo-ovarian abscess, ovarian torsion, or other systemic emergent condition at this time. Patient is aware that her condition can change from initial presentation and she needs to monitor symptoms closely and seek medical attention if any acute changes. I will send her home with prescription for Zofran. Conservative measures otherwise for symptoms. Recheck with your PCM/OBGYN in 3-5 days. Return to the ED with any worsening/concerning symptoms otherwise as reviewed in discharge. Patient is in agreement. - Vital Signs Vital signs: Temp Pulse Resp BP Pulse Ox 98.6 F 95 15 115/72 100 08/11/18 13:20 08/11/18 13:20 08/11/18 13:20 08/11/18 13:20 08/11/18 13:20 - Laboratory Result Diagrams: 08/11/18 14:15 08/11/18 14:15 Laboratory results interpreted by me: 08/11/18 14:15 Urine Blood LARGE H Discharge - Discharge Clinical Impression: Dysmenorrhea Condition: Stable Disposition: HOME, SELF-CARE Instructions: Dysmenorrhea ([facility]) Additional Instructions: Maintain fluid intake Proper hygienic technique Keep the skin clean Safe sexual practices with condoms everytime Tylenol/ibuprofen as needed F/u with your PCM/OBGYN in 3-5 days for a recheck Return to the ED with any development of QUIROGA/fever, trouble with vision, eye redness, worsening pain, vaginal discharge, urinary retention, blood in the urine, flank pain, abdominal pain, n/v, Chest Pain, shortness of breath, joint pains, trouble breathing, or any other worsening/concerning symptoms as needed otherwise. Prescriptions: Ondansetron [Zofran Odt 4 mg Tablet] 1 - 2 tab PO Q4H PRN #15 tab.rapdis PRN Reason: For Nausea/Vomiting Forms: Smoking Cessation Education, Return to Work Referrals: [facility] [Provider Group] - Follow up as needed PRASAD MARK MD [ACTIVE STAFF] - Follow up as needed
[2018-08-11 15:06] LABS: ALANINE AMINOTRANSFERASE 15 U/L (9-52); ALBUMIN 4.6 g/dL (3.5-5.0); ALKALINE PHOSPHATASE 88 U/L (38-126); ANION GAP 11 (5-19); ASPARTATE AMINO TRANSFERASE 24 U/L (14-36); BILIRUBIN,DIRECT 0.3 mg/dL (0.0-0.4); BILIRUBIN,TOTAL 0.8 mg/dL (0.2-1.3); BLOOD UREA NITROGEN 9 mg/dL (7-20); CALCIUM 10.1 mg/dL (8.4-10.2); CARBON DIOXIDE 30 mmol/L (22-30); CHLORIDE 101 mmol/L (98-107); GLUCOSE 83 mg/dL (75-110); POTASSIUM 4.1 mmol/L (3.6-5.0); SODIUM 141.6 mmol/L (137-145)
[2018-08-11 15:23] VITALS: BP 112/72
== END 2018-08-11 15:20 | disposition home or self-care (01) ==
LOC: ER 13:07
DX: N94.6 Dysmenorrhea, unspecified (principal); K21.9 Gastro-esophageal reflux disease without esophagitis; R11.2 Nausea with vomiting, unspecified; F17.200 Nicotine dependence, unspecified, uncomplicated; J45.909 Unspecified asthma, uncomplicated; Z87.19 Personal history of other diseases of the digestive system; Z88.1 Allergy status to other antibiotic agents; Z87.892 Personal history of anaphylaxis; Z91.041 Radiographic dye allergy status; Z91.010 Allergy to peanuts; Z88.0 Allergy status to penicillin; Z91.013 Allergy to seafood; Z91.018 Allergy to other foods
CPT/HCPCS: 99284; 36415; 85025; 81025; 80053; 81001; S0119

== ENCOUNTER 2018-10-21 14:59 | Emergency (ER) | payer OTHER ==
--- NOTE | 2018-10-21 16:01 | ER Document Report ---
ED Medical Screen (RME) - General Chief Complaint: Suicidal Ideation Stated Complaint: PSYCH Time Seen by Provider: 10/21/18 15:52 Mode of Arrival: Ambulatory Information source: Patient Notes: This is a 23-year-old female who is accompanied by her older sister. The patient does have a history of bipolar affective disorder (currently on no medicines for the last 2 months), history of alcohol and drug abuse (sober for the past year). Patient had reportedly been doing well on her medical regimen when she lost her job and insurance. The patient was placed on Medicaid which would not cover all of her medicines. She was previously seen by Dr. Maier and after the insurance change, had converted to [facility] which try to adjust her medicines so that they would be covered by Medicaid. Patient's sister states that the patient decompensated since that time and has just come off all medicines for the past 2 months because of the side effects that she was having. Patient's sister states that the patient has been expressing suicidal ideations as well as ideations to both return to drugs and alcohol. The older sister called the Contact Center Team Lead to have the patient committed and the Contact Center Team Lead recommended the sister to take the patient to the ER. TRAVEL OUTSIDE OF THE [place] IN LAST 30 DAYS: No - Related Data Allergies/Adverse Reactions: Iodinated Contrast- Oral and IV Dye Allergy (Severe, Verified 08/11/18 14:00) Anaphylaxis peanut Allergy (Severe, Verified 08/11/18 14:00) Anaphylaxis Penicillins Allergy (Severe, Verified 08/11/18 14:00) Anaphylaxis shellfish derived Allergy (Severe, Verified 08/11/18 14:00) Anaphylaxis strawberry Allergy (Severe, Verified 08/11/18 14:00) Anaphylaxis amoxicillin Allergy (Intermediate, Verified 08/11/18 14:00) Vomiting cefaclor [From Ceclor] Allergy (Verified 08/11/18 14:00) clindamycin Allergy (Verified 08/11/18 14:00) erythromycin base Allergy (Verified 08/11/18 14:00) ketchup Allergy (Severe, Uncoded 08/11/18 14:00) Anaphylaxis Past Medical History - Past Medical History Cardiac Medical History: Denies: Hx Atrial Fibrillation, Hx Congestive Heart Failure, Hx Coronary Artery Disease, Hx DVT, Hx Heart Attack, Hx Hypercholesterolemia, Hx Hypertension, Hx Pulmonary Embolism Pulmonary Medical History: Reports: Hx Asthma - Has not bothered her for years Denies: Hx COPD, Hx Sleep Apnea Neurological Medical History: Reports: Hx Migraine - Occasional. Denies: Hx Seizures Endocrine Medical History: Denies: Hx Diabetes Mellitus Type 1, Hx Diabetes Mellitus Type 2, Hx Hyperthyroidism, Hx Hypothyroidism Renal/ Medical History: Denies: Hx Peritoneal Dialysis GI Medical History: Reports: Hx Gastroesophageal Reflux Disease. Denies: Hx Cirrhosis, Hx Hepatitis Skin Medical History: Reports Hx Eczema Psychiatric Medical History: Reports: Hx Depression Infectious Medical History: Denies: Hx Hepatitis Past Surgical History: Reports: Hx Nose Surgery, Hx Tonsillectomy, Other - Nasal surgery - Immunizations Hx Diphtheria, Pertussis, Tetanus Vaccination: Yes Physical Exam - Vital signs Vitals: Temp Pulse Resp BP Pulse Ox 98.5 F 86 16 121/69 97 10/21/18 15:21 10/21/18 15:21 10/21/18 15:21 10/21/18 15:21 10/21/18 15:21 Course - Vital Signs Vital signs: Temp Pulse Resp BP Pulse Ox 98.5 F 86 16 121/69 97 10/21/18 15:21 10/21/18 15:21 10/21/18 15:21 10/21/18 15:21 10/21/18 15:21
[2018-10-21 16:47] LABS: ABSOLUTE EOSINOPHILS # (AUTO) 0.2 10^3/uL (0.0-0.6); ABSOLUTE LYMPHOCYTES (AUTO) 2.5 10^3/uL (0.5-4.7); ABSOLUTE MONOCYTES (AUTO) 0.7 10^3/uL (0.1-1.4); ABSOLUTE NEUT (AUTO) 3.9 10^3/uL (1.7-8.2); BASOPHILS % (AUTO) 0.5 % (0-2); EOSINOPHILS % (AUTO) 2.1 % (0-6); HEMATOCRIT 41.2 % (36.0-47.0); HEMOGLOBIN 13.9 g/dL (12.0-15.5); LYMPHOCYTES % (AUTO) 34.3 % (13-45); MEAN CORPUSCULAR HEMOGLOBIN 29.8 pg (27.0-33.4); MEAN CORPUSCULAR HGB CONC 33.8 g/dL (32.0-36.0); MEAN CORPUSCULAR VOLUME 88 fl (80-97); MONOCYTES % (AUTO) 9.5 % (3-13); PLATELET COUNT 286 10^3/uL (150-450); RED BLOOD COUNT 4.68 10^6/uL (3.72-5.28); RED CELL DISTRIBUTION WIDTH 13.3 % (11.5-14.0); SEGMENTED NEUTROPHILS % (AUTO) 53.6 % (42-78); TOTAL CELLS COUNTED % (AUTO) 100 %; WHITE BLOOD COUNT 7.3 10^3/uL (4.0-10.5)
[2018-10-21 17:00] LABS: APPEARANCE,URINE CLEAR; BILIRUBIN,URINE NEGATIVE (NEGATIVE); COLOR,URINE STRAW; GLUCOSE, URINE NEGATIVE (NEGATIVE); KETONES,URINE NEGATIVE (NEGATIVE); LEUKOCYTE ESTERASE,URINE NEGATIVE (NEGATIVE); NITRITE,URINE NEGATIVE (NEGATIVE); PROTEIN,URINE NEGATIVE (NEGATIVE); URINE SPECIFIC GRAVITY 1.009; UROBILINOGEN,URINE NEGATIVE mg/dL (<2.0)
[2018-10-21 17:09] LABS: ALANINE AMINOTRANSFERASE 17 U/L (9-52); ALBUMIN 4.7 g/dL (3.5-5.0); ALKALINE PHOSPHATASE 89 U/L (38-126); ANION GAP 10 (5-19); ASPARTATE AMINO TRANSFERASE 22 U/L (14-36); BILIRUBIN,DIRECT 0.3 mg/dL (0.0-0.4); BILIRUBIN,TOTAL 0.5 mg/dL (0.2-1.3); BLOOD UREA NITROGEN 10 mg/dL (7-20); CALCIUM 9.5 mg/dL (8.4-10.2); CARBON DIOXIDE 28 mmol/L (22-30); CHLORIDE 103 mmol/L (98-107); GLUCOSE 90 mg/dL (75-110); POTASSIUM 4.1 mmol/L (3.6-5.0); SALICYLATE 4.8 mg/dL (2.0-20.0); SODIUM 140.8 mmol/L (137-145); TOTAL PROTEIN 7.9 g/dL (6.3-8.2)
[2018-10-21 17:10] LABS: ACETAMINOPHEN < 10 ug/mL (10-30); ALCOHOL < 10 mg/dL (NONE DETECTED)
[2018-10-21 17:15] LABS: URINE AMPHETAMINES SCREEN NEGATIVE; URINE BARBITURATES SCREEN NEGATIVE; URINE BENZODIAZEPINES SCREEN NEGATIVE; URINE COCAINE SCREEN NEGATIVE; URINE MARIJUANA (THC) SCREEN NEGATIVE; URINE METHADONE SCREEN NEGATIVE; URINE PHENCYCLIDINE SCREEN NEGATIVE
--- NOTE | 2018-10-21 17:18 | PSYCHOLOGICAL NOTE ---
Psych Note - Psych Note Date seen by psych provider: 10/21/18 Time seen by psych provider: 16:00 Psych Note: Reason for Consult: auditory hallucinations, suicidal ideation Consent permission: Patient's sister Dominique, This is a 23-year-old female who is accompanied by her older sister. The patient does have a history of bipolar and borderline personality disorder (currently on no medicines for the last 2 months), history of alcohol and drug abuse (sober for the past year with brief relapse 2 months ago). Patient discloses that she came to [facility] ED because she is "manic bipolar and "want to use but cannot." She disclosed that she is fighting relapsing and is having difficulty with "hearing stuff." She states that hearing things is "normal" however that is worsened lately. When asked for clarification she reports that she hears background noise daily nonstop however it has been getting worse and it tends to be when she is trying to go to sleep or when she is sleeping she hears multiple voices in normal conversations. When asked if she ever sees things she reports no however states that that is not entirely true because she believes in spirits and sees them. She states that she is currently not having thoughts of wanting to harm herself however knows that it comes and goes very quickly and states that in the next hour or so she may impulsively want to harm herself. She states the last time she used it was July 2018 she both drank and used pot but is unable to remember the exact date because she was so drunk. She has been struggling with her addiction and overall feels that sobriety other than brief relapse in July has been of about 1 year. She disclosed that she did attempt to overdose in 2016 but denies receiving any medical attention stating that she "just threw everything up and slept for 2 days." She reports that she feels overwhelming thoughts of being useless, not doing what she is supposed to be doing, and feeling stuck. She reports that "I am just not happy." She disclosed that she used to go to [facility] however when she lost her insurance she [facility]. She reports that there was so many medication changes. Patient's sister Dominique discloses that the patient has been struggling with alcohol and opiate abuse and was sent in to rehab back in 2017. She continued to report that the patient has a diagnosis of borderline personality disorder and bipolar has been off her medications for about 2 months. She states that it has been difficult because she lost insurance so her medications had to change and since then she does not been stabilized. She discloses that the patient did attempt overdose in 2017 approximately May or June timeframe. She reports concerned because the patient disclosed to her that today she felt like things were crawling on her and she is hearing voices. Patient is alert and orientated to person, place, time and circumstance. Mood is slightly anxious with congruent affect. Patient is observed sitting on the bed with her legs tucked against her chest and arms wrapped around her knees. Patient denies current suicidal ideation however reports passive chronic suicidal ideation that comes and goes. Patient denies homicidal ideation. D elusions are absent behaviors congruent with an intact reality based presentation i.e. organized and linear thought process. Patient does report some visual and auditory hallucinations however patient is not demonstrating any behaviors or responding to internal stimuli. Eye contact is well-maintained. Intellectual abilities appear to be within the average range. Attention and concentration are fair. Insight, judgment, impulse control are fair. Medication recommendations per [facility]'s contracted psychiatrist Dr. Bernard DUBON are as follows Zyprexa 5 mg twice daily Cogentin 1 mg daily 296.80 (F31.9) unspecified bipolar and related disorder per history provided by patient 301.83 (F360.3) borderline personality disorder per history of by the patient's family Impression\\plan: Patient is recommended for overnight mental health observation. Patient does not meet IVC criteria per [place] GS 122C however reports that she would like to get back on her medication. She is voluntarily staying to be observed to start medications with probable discharge in morning. Patient does present slightly anxious currently and endorses passive suicidal ideation that comes and goes. Dr. Barnes was consulted and care management this patient; attending physicians in agreement with recommendations and disposition.
--- NOTE | 2018-10-21 19:44 | ER Document Report ---
ED Psych Disorder / Suicide <LEEBETH - Last Filed: 10/22/18 10:01> - General Mode of Arrival: Ambulatory TRAVEL OUTSIDE OF THE [place] IN LAST 30 DAYS: No <AUTUMN TOLEDO - Last Filed: 10/22/18 10:21> - General Chief Complaint: Suicidal Ideation Stated Complaint: PSYCH Time Seen by Provider: 10/21/18 15:52 Primary Care Provider: [facility] [Outside] - Follow up as needed Notes: Patient brought in because she is expressing suicidal thoughts. She has a history of bipolar disorder. Depression. Says that she is having some visual disturbances and auditory hallucinations. This is been going on for a couple of days. She is been out of her medications. (AUTUMN TOLEDO) - Related Data Allergies/Adverse Reactions: Iodinated Contrast- Oral and IV Dye Allergy (Severe, Verified 08/11/18 14:00) Anaphylaxis peanut Allergy (Severe, Verified 08/11/18 14:00) Anaphylaxis Penicillins Allergy (Severe, Verified 08/11/18 14:00) Anaphylaxis shellfish derived Allergy (Severe, Verified 08/11/18 14:00) Anaphylaxis strawberry Allergy (Severe, Verified 08/11/18 14:00) Anaphylaxis amoxicillin Allergy (Intermediate, Verified 08/11/18 14:00) Vomiting cefaclor [From Ceclor] Allergy (Verified 08/11/18 14:00) clindamycin Allergy (Verified 08/11/18 14:00) erythromycin base Allergy (Verified 08/11/18 14:00) ketchup Allergy (Severe, Uncoded 08/11/18 14:00) Anaphylaxis Past Medical History - General Information source: Patient - Social History Smoking Status: Current Every Day Smoker Frequency of alcohol use: None Drug Abuse: None Family History: Reviewed & Not Pertinent Patient has suicidal ideation: Yes Patient has homicidal ideation: No Pulmonary Medical History: Reports: Hx Asthma - Has not bothered her for years Neurological Medical History: Reports: Hx Migraine - Occasional. Denies: Hx Seizures GI Medical History: Reports: Hx Gastroesophageal Reflux Disease Skin Medical History: Reports Hx Eczema Psychiatric Medical History: Reports: Hx Bipolar Disorder, Hx Depression Infectious Medical History: Denies: Hx Hepatitis Past Surgical History: Reports: Hx Nose Surgery, Hx Tonsillectomy, Other - Nasal surgery - Immunizations Hx Diphtheria, Pertussis, Tetanus Vaccination: Yes <AUTUMN TOLEDO - Last Filed: 10/22/18 10:21> Review of Systems <AUTUMN TOLEDO - Last Filed: 10/22/18 10:21> - Review of Systems Notes: REVIEW OF SYSTEMS: CONSTITUTIONAL : Denies fever. EENT: Denies eye, ear, nose or mouth or throat pain or other symptoms. CARDIOVASCULAR: Denies chest pain. RESPIRATORY: Denies cough, chest congestion, or shortness of breath. GASTROINTESTINAL: Denies abdominal pain or nausea, vomiting, or diarrhea. GENITOURINARY: Denies difficulty or painful urinating, urinary frequency, blood in urine. MUSCULOSKELETAL: Denies back or neck pain. Denies joint pain or swelling. SKIN: Denies rash or skin lesions. NEUROLOGICAL: Denies LOC or altered mental status. Denies headache. Denies sensory loss or motor deficits. ALL OTHER SYSTEMS REVIEWED AND NEGATIVE. (AUTUMN TOLEDO) Physical Exam - Vital signs Interpretation: Normal <AUTUMN TOLEDO - Last Filed: 10/22/18 10:21> - Vital signs Vitals: Temp Pulse Resp BP Pulse Ox 98.5 F 86 16 121/69 97 10/21/18 15:21 10/21/18 15:21 10/21/18 15:21 10/21/18 15:21 10/21/18 15:21 Notes: PHYSICAL EXAMINATION: GENERAL: Well-appearing, in no acute distress. Vital signs are all essentially normal. HEAD: Atraumatic, normocephalic. EYES: Pupils equal round and reactive to light, extraocular movements intact. ENT: oropharynx clear without exudates. Moist mucous membranes. NECK: Normal range of motion, supple. LUNGS: Breath sounds clear and equal bilaterally. HEART: Regular rate and rhythm without murmurs. ABDOMEN: Soft, nontender. No guarding or rebound. No masses. BACK: No tenderness throughout entire back. EXTREMITIES: Normal range of motion without pain. NEUROLOGICAL: Normal speech, normal gait. Normal sensory, motor, and reflex exams. Awake, alert, and oriented x3. Cranial nerves normal. PSYCH: Somewhat depressed acting, but for the most part normal mood, normal affect. SKIN: Warm, dry, no rashes. (AUTUMN TOLEDO) Course - Laboratory Result Diagrams: 10/21/18 16:15 10/21/18 16:15 <BETH LEE - Last Filed: 10/22/18 10:01> - Laboratory Result Diagrams: 10/21/18 16:15 10/21/18 16:15 <AUTUMN TOLEDO - Last Filed: 10/22/18 10:21> - Re-evaluation Re-evalutation: 10/22/18 10:20 Morning rounds: Chart reviewed and patient interviewed. Patient being evaluated for suicidal ideation. Says she is feeling better this morning. Lab studies were all normal. Vital signs are all normal. Patient appears to be medically stable for transfer or discharge. Adele Toledo MD (AUTUMN TOLEDO) - Vital Signs Vital signs: Temp Pulse Resp BP Pulse Ox 98.1 F 74 20 118/66 100 10/22/18 06:37 10/22/18 06:37 10/22/18 06:37 10/22/18 06:37 10/22/18 06:37 - Laboratory Laboratory results interpreted by me: 10/21/18 16:15 Acetaminophen < 10 L Discharge <BETH LEE - Last Filed: 10/22/18 10:01> <AUTUMN TOLEDO - Last Filed: 10/22/18 10:21> - Discharge Clinical Impression: Suicidal ideation Bipolar disorder Qualifiers: Most recent bipolar episode type: most recent episode unspecified type Condition: Stable Disposition: HOME, SELF-CARE Additional Instructions: You have been evaluated both medical and behavioral health teams and been deemed appropriate for discharge. You have been provided prescriptions for Zyprexa 5 mg twice daily and Cogentin 1 mg daily; please take as directed. You are highly encouraged to follow-up with outpatient substance abuse treatment in the form of one-on-one therapy. You have been provided a resource list of area providers including mobile crisis contact information. DEPRESSION: Your evaluation reveals that you have mental depression. While symptoms may be vague, they often include disturbance of sleep, fatigue, loss of appetite, and general loss of interest in life. While depression may be a side effect of drugs, or a reaction to a major change in your life, many cases have no known cause. If depression is acute, and related to a major loss in your life, you can expect it to clear completely with time. If you have been depressed a long time, are prone to repeated bouts of depression or low mood, or have been thinking of suicide, get help. Depression can be treated with anti-depressant medication and counselling. Long-term depression will often take a few weeks to clear, even with appropriate medication. Follow-up care is important. SUICIDAL IDEATION: Suicidal ideation is a common medical term for thoughts about suicide, which may be as detailed as a formulated plan, without the suicidal act itself. Although most people who undergo suicidal ideation do not commit suicide, some go on to make suicide attempts. The range of suicidal ideation varies greatly from fleeting to detailed planning, role playing, and unsuccessful attempts. While thoughts about suicide are common, most people do not carry out serious actions to commit suicide. Based upon your evaluation and discussion with you, we do not believe you are currently at risk to act upon your thoughts of suicide. You have agreed to return to the Emergency Department, at any time, if you feel inclined to act upon your suicidal thoughts. FOLLOW-UP CARE: If you experience worsening or a significant change in your symptoms, notify the physician immediately or return to the Emergency Department at any time for re- evaluation. Prescriptions: Benztropine Mesylate [Cogentin 1 mg Tablet] 1 mg PO DAILY #7 tablet Olanzapine [Zyprexa 5 mg Tablet] 5 mg PO BID #14 tablet Referrals: [facility] [Outside] - Follow up as needed
[2018-10-21] MEDS: BENZTROPINE MESYLATE 1 MG TABLET PO SCH (19:52)
[2018-10-21] MEDS: OLANZAPINE 5 MG TABLET PO SCH (19:52)
--- NOTE | 2018-10-21 21:07 | EKG REPORT ---
SEVERITY:- NORMAL ECG - SINUS RHYTHM : Confirmed by: Ailyn Lu MD 21-Oct-2018 21:06:14
[2018-10-22] MEDS: OLANZAPINE 5 MG TABLET PO SCH (10:15)
[2018-10-22] MEDS: BENZTROPINE MESYLATE 1 MG TABLET PO SCH (10:15)
[2018-10-22 10:40] VITALS: BP 97/59
--- NOTE | 2018-10-22 11:12 | PSYCHOLOGICAL NOTE ---
Psych Note - Psych Note Date seen by psych provider: 10/22/18 Time seen by psych provider: 08:10 Psych Note: Reason for Consult: auditory hallucinations, suicidal ideation Consent permission: Patient's sister Dominique, This is a 23-year-old female who is accompanied by her older sister. The patient does have a history of bipolar and borderline personality disorder (currently on no medicines for the last 2 months), history of alcohol and drug abuse (sober for the past year with brief relapse 2 months ago). Check in conducted with patient Patient disclosed that she is feeling well and much more relaxed today. She reports that she still worries about relapse and knows that she needs to get in to services. She reports that she had called many places and they could not locate somebody that took her insurance and reports that was the main reason why she ended up coming to [facility] yesterday. She continued to disclose that she is interested in possibly going to rehab and has been discussing that with her sisters. Patient's mood is euthymic with congruent affect as evidenced by smiling and engaging with clinician. Patient engaged in problem solving and demonstrated forward thinking as evidenced by discussing treatment options, returning to work, and continued sobriety. Medication recommendations per [facility]'s contracted psychiatrist Dr. Bernard DUBON are as follows Zyprexa 5 mg twice daily Cogentin 1 mg daily 296.80 (F31.9) unspecified bipolar and related disorder per history provided by patient 301.83 (F360.3) borderline personality disorder per history of by the patient's family Impression\plan: Patient is cleared from acute psychiatric services. Medication adjustments have been made. Patient denies current suicidal ideation. Openly discusses concerns with clinician in regards to relapse. Patient has been provided resource list of area providers that includes mobile crisis contact information. Patient is having difficulty finding provider that takes her insurance; behavioral health team confirmed the [facility] takes the patient's insurance and provides both inpatient and outpatient services. Patient is recommended to follow-up with [facility] for continued assistance. Dr. Barnes was consulted and care management this patient; attending physicians in agreement with recommendations and disposition.
== END 2018-10-22 10:45 | disposition home or self-care (01) ==
LOC: ER 14:59
DX: R45.851 Suicidal ideations (principal); R31.9 Hematuria, unspecified; F17.200 Nicotine dependence, unspecified, uncomplicated; Z91.010 Allergy to peanuts; Z88.0 Allergy status to penicillin; Z91.013 Allergy to seafood; Z91.018 Allergy to other foods; Z88.3 Allergy status to other anti-infective agents
CPT/HCPCS: 36415; 80053; 80307; 81001; 85025; 93005; 93010; 99285